=== PATIENT | female | born 1965 | race Two or more races ===

== ENCOUNTER 2017-11-13 13:00 | Outpatient (AMBR) | payer MEDICAID, SELFPAY ==
--- NOTE | 2017-11-06 14:39 | PT.ODAYNRPT ---
PT Outpatient Daily Note Date of Service: November 06, 2017 OP Daily Note Visit Reasons: knee pain Outpatient Physical Therapy Treatment Date: 11/06/17 Subjective: pt reported feeling more tired today and not sure. Objective: see flow sheet. Assessment: exercises seemed to be bothering pt more today due to increase in fatigue. pt needed more rest breaks in between reps and exercises. pt had more pain in the hips and was not able to complete all reps for tick-ticks. corrected pt's posture during mini squats as she brings her knees over her toes. she was then able to correct her posture after I demonstrated the correct form. Plan: continue POC per PT. Length of Time (minutes) of Treatment: 30 Minutes Office Procedures PT Procedures PT Date of Service: 11/06/17 Therapeutic Exercise 30 minutes: Yes
--- NOTE | 2017-11-11 14:09 | PT.ODAYNRPT ---
PT Outpatient Daily Note Date of Service: November 11, 2017 OP Daily Note Visit Reasons: knee pain Outpatient Physical Therapy Treatment Date: 11/11/17 Subjective: Pt's knee feels okay. Pt still has pain but she's been able to move and tolerate knee pain Objective: Please see flow chart for list of ther ex performed Assessment: tolerate exercises with minimal pain Plan: Continue with PT Length of Time (minutes) of Treatment: 30 Minutes Office Procedures PT Procedures PT Date of Service: 11/06/17 Therapeutic Exercise 30 minutes: Yes PT Procedures PT Date of Service: 11/11/17 Therapeutic Exercise 30 minutes: Yes
--- NOTE | 2017-11-13 13:54 | PT.ODAYNRPT ---
PT Outpatient Daily Note Date of Service: November 13, 2017 OP Daily Note Visit Reasons: knee pain Outpatient Physical Therapy Treatment Date: 11/13/17 Subjective: Pt's knee is feeling a little better. Pt stated that she still has difficulty with putting all weight on her knee with walking. Pt see the doctor on friday and will like to go back to work. Objective: Please see flow chart for list of ther ex performed Assessment: tolerate exercises with minimal pain Plan: Continue with PT Length of Time (minutes) of Treatment: 30 Minutes Office Procedures PT Procedures PT Date of Service: 11/06/17 Therapeutic Exercise 30 minutes: Yes PT Procedures PT Date of Service: 11/11/17 Therapeutic Exercise 30 minutes: Yes PT Procedures PT Date of Service: 11/13/17 Therapeutic Exercise 30 minutes: Yes
== END 2017-12-05 23:59 | disposition home or self-care (01) ==
PROVIDERS: Visit Provider Orthopaedic Surgery
DX: M23.91 Unspecified internal derangement of right knee (principal)
CPT/HCPCS: 97110

== ENCOUNTER 2024-02-10 13:06 | Outpatient (AMB) | payer MEDICARE, MEDICAID, SELFPAY ==
[2024-02-10 13:16] VITALS: BP 126/88; PULSE 81; RESP 19; TEMP 36.3; O2SAT 98; BMI 43.9
--- NOTE | 2024-02-10 13:16 | ORTHONT_ITS ---
Vital signs 02/10/24 13:16 Height 1.68 m Height Method Stated Weight 123.604 kg Weight Measurement Method Standing Scale BMI 43.9 BP 126/88 H Blood Pressure Source Automatic Cuff Blood Pressure Location Right Upper Arm Position Sitting Respiration 19 Pulse 81 Pulse Source Monitor Temp 97.3 F Temp Source Temporal Artery Scan Pulse Oximetry (%) 98 Oxygen Delivery Method Room Air Med/Allergies Allergies & Medications Allergies adhesive Allergy (Severe, Verified 02/10/24 13:17) Blister Medication Reconciliation zolpidem 10 mg tablet 10 mg PO HS PRN Insomnia 06/05/17 [History Confirmed 02/10/24] aspirin 81 mg tablet,delayed release (Aspir-) 81 mg PO QDAY 02/10/19 [History Confirmed 02/10/24] hydrocodone 5 mg-acetaminophen 325 mg tablet ([place]) 1 tab PO Q6H PRN Pain 02/10/19 [History Confirmed 02/10/24] naproxen 375 mg tablet,delayed release 375 mg PO BID 02/10/19 [History Confirmed 02/10/24] rivaroxaban 15 mg tablet (Xarelto) 15 mg PO BID #60 tabs 02/10/19 [Rx Confirmed 02/10/24] lidocaine 4 % topical cream 1 applicatio topical BID PRN pain #30 grams 07/15/19 [Rx Confirmed 02/10/24] Subjective Visit Visit for: new patient and other (specify) (second opinion) Immunization / Flu Flu Vaccine in the Last 12 Months: No Flu Vaccine Exclusion Criteria: Refused by Patient History of Present Illness Chief complaint: Right knee pain Patient is a 58-year-old female with a total knee replacement in 2018 that was complicated by stiffness who subsequently fell. She was found to have a distal femur fracture which underwent plating. This subsequently got infected and the patient required revision surgery of some sort in 2019 at [facility]. The knee has been stiff since then and she was told that she cannot get any redo surgery. Her knee is persistently stiff and painful Personal History Occupation: retired Pain Pain level (0-10): 8 Pain duration: with activity Pain location: inside (medial), outside (lateral) and anterior Pain quality: sharp Pain timing: increases with activity Associated signs & symptoms: none Ambulatory data Ambulatory device: none Treatments Improvement with previous injections: No Improvement with PT: No Improvement with NSAIDS: no Review of Systems Review of Systems: All systems negative unless otherwise noted in HPI. Exam Exam Patient is in no acute distress and is cooperative with the examination today. Patient has a normal mood and affect. Breathing is nonlabored. In no respiratory distress. Bilateral extremities were evaluated and demonstrates sensation intact to light touch. Palpable pedal pulses are present. No significant edema is present. Right knee incision is clean dry and intact. Range of motion is 0 to 10 degrees. It is tender to palpation medially and laterally Assessment and Plan Problem List (1) Infection of knee: Status: Acute Plan: Patient is a 58-year-old Female status post right total knee replacement comp licated by fracture and infection who underwent revision surgery. I do not know what the current images look like at all. I will order x-rays to see what it looks like currently. Her knee is complicated by stiffness and we will likely get an infection workup but I cannot see any images So I am unsure of what to do so we will make her get new x-rays. (2) Knee swelling: Status: Acute (3) Closed femur fracture: Status: Acute Office Procedures GNS Level of Care Nursing/Assessment Patient Status: Initial/New Patient Nursing Assessment/Reassesment: Medication Reconciliation, Update PMH in EMR and Vital Signs Coordination of Care: Complex Care and Chronic Disease 1-5, Education Complex Pt/Fam, Consent,records obtained, informed consent, 1 Ins Authorization, Lab and Imaging orders, Results/Orders obtained and Staff clarify orders Special Needs: Language special needs New Patient Charge New Patient Point Assignment: 1124 New Patient Point Charge: SENIOR ANALYSIS SPECIALIST Level 4 ([id number]) Past Medical History Past Medical History Have you ever been diagnosed with any of the following: Neurological Problems Seizures: No Migraine: Yes Cardiology Problems Congestive Heart Failure: No Varicose Veins: Yes Respiratory Problems Chronic Obstructive Pulmonary Disease (COPD): No Asthma: Yes Bronchitis: Yes Smoking: No Smoking Exposure: No Stomache/Intestinal Problems Obesity: Yes Genital/Urinary Problems Renal Disease: No Reproductive Problems Breast Cancer: No Previous Pregnancies: Yes Musculoskeletal Problems Arthritis: Yes (knees, spine) Carpal Tunnel Syndrome: Yes Degenerative Joint Disease: Yes (History of right knee DJD, history of surgeries x2 to the right knee) Endocrine Problems Diabetes Mellitus Type 1: No Diabetes Mellitus Type 2: No Blood Problems Anemia: No Other Problems Hospitalization: No Falls: No Blood Transfusions: No Blood Transfusion Reaction: No Anesthesia Reactions: No Chicken Pox: Yes
== END 2024-02-10 13:31 | disposition home or self-care (01) ==
LOC: HODSRG 13:06
PROVIDERS: PCP Registered Nurse Community Health; Referring Provider Registered Nurse Community Health; Supervising Provider Orthopaedic Surgery Adult Reconstructive Orthopaedic Surgery; Visit Provider Orthopaedic Surgery Adult Reconstructive Orthopaedic Surgery
DX: M25.669 Stiffness of unspecified knee, not elsewhere classified (principal); S72.90XD Unspecified fracture of unspecified femur, subsequent encounter for closed fracture with routine healing; X58.XXXD Exposure to other specified factors, subsequent encounter; Z96.651 Presence of right artificial knee joint
CPT/HCPCS: 73564; 99204; G0463

== ENCOUNTER → 2024-04-01 | Outpatient (CLI) | payer MEDICARE, MEDICAID, SELFPAY ==
--- NOTE | 2024-04-01 15:32 | XR_ITS ---
Examination: Bilateral hips, AP pelvis, 5 views, right femur 2 views Technique: AP, lateral views both hips, AP pelvis, 5 views, AP lateral right femur 2 views total 7 views Exam date and time: April 01, 2024 1534 hours INDICATIONS: Bilateral hip pain for years worse right hip FINDINGS: Mild to moderate narrowing right and left hip joints No right or left hip fracture Total right knee arthroplasty partly visualized with satisfactory alignment No right femur fracture IMPRESSION: Mild to moderate narrowing right and left hip joints
--- NOTE | 2024-04-01 15:32 | XR_ITS ---
Examination: Lumbar spine, 5 views Technique: Lumbar spine AP, lateral, coned lateral lower lumbar spine, bilateral obliques 5 views Exam date and time: April 01, 2024 1534 hours INDICATIONS: Low back pain beginning 2 years ago getting worse. FINDINGS: Diffuse advanced facet arthropathy No lumbar fracture Moderate to advanced diffuse lumbar degenerative disc disease No spondylolisthesis. Moderate lumbar spondylosis IMPRESSION: Moderate to advanced diffuse lumbar degenerative disc disease
[2024-04-01 17:04] LABS: Albumin, Serum 4.5 gm/dL (3.5-5.0); Anion Gap 6 (7-16); BUN/Creatinine Ratio 33 Ratio (12-20); Blood Urea Nitrogen 26 mg/dL (9-23); Calcium 9.3 mg/dL (8.3-10.6); Calcium (Corrected) 9.3 mg/dL (8.5-10.1); Carbon Dioxide 25.9 mMol/L (20.0-31.0); Chloride 107 mMol/L (98-107); Creatinine (Component) 0.8 mg/dL (0.6-1.3); Glucose 101 mg/dL (74-106); Osmolality,Calculated 282 (275-295); Potassium 4.2 mMol/L (3.4-5.1); Sodium 139 mMol/L (136-145); eGFR > 60 See Note
== END | disposition home or self-care (01) ==
PROVIDERS: PCP Registered Nurse Community Health; Referring Provider Registered Nurse Community Health; Visit Provider Radiology Diagnostic Radiology
DX: M51.369 Other intervertebral disc degeneration, lumbar region without mention of lumbar back pain or lower extremity pain (principal); M25.852 Other specified joint disorders, left hip; M25.851 Other specified joint disorders, right hip; R05.9 Cough, unspecified
CPT/HCPCS: 36415; 72110; 73522; 80069

== ENCOUNTER → 2024-04-13 | Outpatient (CLI) | payer MEDICARE, MEDICAID, SELFPAY ==
--- NOTE | 2024-04-13 | XR_ITS ---
Examination: PA lateral chest 2 views TECHNIQUE: Upright PA lateral chest 2 views Exam date and time: April 13, 2024 1252 hours INDICATIONS: Chronic coughing months, chest pain one week FINDINGS: Normal heart size Scarring versus mild pneumonia in the lingular segment left upper lobe, clinical correlation advised No pulmonary edema Moderate osteopenia IMPRESSION: Scarring versus mild pneumonia in the lingular segment left upper lobe, clinical correlation advised
[2024-04-19 06:57] LABS: ANA Screen, IFA NEGATIVE (NEGATIVE)
== END | disposition home or self-care (01) ==
PROVIDERS: Internal Medicine; PCP Specialist; Referring Provider Registered Nurse Community Health; Visit Provider Radiology Diagnostic Radiology
DX: R13.10 Dysphagia, unspecified (principal); J42 Unspecified chronic bronchitis; J45.30 Mild persistent asthma, uncomplicated; R05.3 Chronic cough; R07.1 Chest pain on breathing; G47.9 Sleep disorder, unspecified
CPT/HCPCS: 36415; 71046; 84443; 86038

== ENCOUNTER → 2024-04-15 | Outpatient (CLI) | payer MEDICARE, MEDICAID, SELFPAY ==
--- NOTE | 2024-04-15 11:30 | XR_ITS ---
Examination: Abdomen sonogram, Limited Date and time of exam: April 15, 2024 1144 hours INDICATIONS: Abdominal pain with heartburn and constipation beginning 2 years ago. Technique: Real-time ruby scale transabdominal sonographic images of the upper abdomen obtained. Findings: Normal gallbladder Normal common bile duct 0.2 cm Pancreatic head 2.8 cm Hepatomegaly 18.1 cm fatty infiltration no focal liver lesions Normal hepatopedal portal venous flow Patent IVC IMPRESSION: Normal gallbladder Moderate hepatomegaly fatty liver
== END | disposition home or self-care (01) ==
PROVIDERS: PCP Registered Nurse Community Health; Referring Provider Specialist; Visit Provider Specialist
DX: K76.0 Fatty (change of) liver, not elsewhere classified (principal)
CPT/HCPCS: 76705

== ENCOUNTER 2024-04-16 15:30 | Outpatient (AMB) | payer MEDICARE, MEDICAID, SELFPAY ==
[2024-04-16 15:47] VITALS: BP 141/88; PULSE 70; RESP 18; TEMP 36.2; O2SAT 96; BMI 43.2
--- NOTE | 2024-04-16 15:47 | PD.ORTHCLVIS ---
Vital signs 04/16/24 15:47 Height 1.68 m Height Method Stated Weight 122.016 kg Weight Measurement Method Standing Scale BMI 43.2 BP 141/88 H Blood Pressure Source Automatic Cuff Blood Pressure Location Left Upper Arm Position Sitting Respiration 18 Pulse 70 Pulse Source Monitor Temp 97.2 F Temp Source Temporal Artery Scan Pulse Oximetry (%) 96 Oxygen Delivery Method Room Air Med/Allergies Allergies & Medications Allergies adhesive Allergy (Severe, Verified 04/16/24 15:48) Blister Medication Reconciliation zolpidem 10 mg tablet 10 mg PO HS PRN Insomnia 06/05/17 [History Confirmed 04/16/24] aspirin 81 mg tablet,delayed release (Aspir-) 81 mg PO QDAY 02/10/19 [History Confirmed 04/16/24] hydrocodone 5 mg-acetaminophen 325 mg tablet ([place]) 1 tab PO Q6H PRN Pain 02/10/19 [History Confirmed 04/16/24] naproxen 375 mg tablet,delayed release 375 mg PO BID 02/10/19 [History Confirmed 04/16/24] rivaroxaban 15 mg tablet (Xarelto) 15 mg PO BID #60 tabs 02/10/19 [Rx Confirmed 04/16/24] lidocaine 4 % topical cream 1 applicatio topical BID PRN pain #30 grams 07/15/19 [Rx Confirmed 04/16/24] Exam Exam Patient is in no acute distress and is cooperative with the examination today. Patient has a normal mood and affect. Breathing is nonlabored. In no respiratory distress. Bilateral extremities were evaluated and demonstrates sensation intact to light touch. Palpable pedal pulses are present. No significant edema is present. Right knee incision is clean dry and intact. Range of motion is 0 to 10 degrees. It is tender to palpation medially and laterally Xrays demonstrate a revision total knee replacement with well fixed cemented femoral stems and cementless tibia stems. Assessment and Plan Problem List (1) Infection of knee: Status: Acute Plan: Patient is a 58-year-old Female status post right total knee replacement complicated by fracture and infection who underwent revision surgery. Her knee is complicated by stiffnes. We can get an esr and crp and go from there. We will do an aspiration if it is high. (2) Knee swelling: Status: Acute (3) Closed femur fracture: Status: Acute Office Procedures GNS Level of Care Nursing/Assessment Patient Status: Established Patient Nursing Assessment/Reassesment: Medication Reconciliation, Update PMH in EMR and Vital Signs Coordination of Care: Complex Care and Chronic Disease 1-5, Education Complex Pt/Fam, Consent,records obtained, informed consent, Results/Orders obtained and Staff clarify orders Special Needs: Language special needs Established Patient Charge Established Patient Point Assignment: 95 Established Patient Point Charge: EP Level 3 (80-115) MA Intake Visit Data Collection New Patient or Established: Established Patient (seen at [facility] within 3 years) Reason for Visit:: XRAY RESULTS Seen by Clinical Staff ONLY (RN/MA): No Laborer Demolition Required: Yes PCP or OBGYN visit in last 3 months: Yes Hx Now: No Do You Feel Safe at Home: Yes Authorities Contacted: N/A Questionairres Past Medical History Past Medical History Have you ever been diagnosed with any of the following: Neurological Problems Seizures: No Migraine: Yes Cardiology Problems Congestive Heart Failure: No Varicose Veins: Yes Respiratory Problems Chronic Obstructive Pulmonary Disease (COPD): No Asthma: Yes Bronchitis: Yes Smoking: No Smoking Exposure: No Stomache/Intestinal Problems Obesity: Yes Genital/Urinary Problems Renal Disease: No Reproductive Problems Breast Cancer: No Previous Pregnancies: Yes Musculoskeletal Problems Arthritis: Yes (knees, spine) Carpal Tunnel Syndrome: Yes Degenerative Joint Disease: Yes (History of right knee DJD, history of surgeries x2 to the right knee) Endocrine Problems Diabetes Mellitus Type 1: No Diabetes Mellitus Type 2: No Blood Problems Anemia: No Other Problems Hospitalization: No Falls: No Blood Transfusions: No Blood Transfusion Reaction: No Anesthesia Reactions: No Chicken Pox: Yes Subjective Visit Visit for: follow up visit and x-rays (RESULTS) Immunization / Flu Flu Vaccine in the Last 12 Months: No Flu Vaccine Exclusion Criteria: No Exclusion Criteria History of Present Illness Chief complaint: right knee pain Patient is a 58-year-old female with a total knee replacement in 2018 that was complicated by stiffness who subsequently fell. She was found to have a distal femur fracture which underwent plating. This subsequently got infected and the patient required revision surgery of some sort in 2019 at [facility]. The knee has been stiff since then and she was told that she cannot get any redo surgery. Her knee is persistently stiff and painful. Pain Pain level (0-10): 10 Pain duration: CONSTANT Pain location: inside (medial) and outside (lateral) Pain quality: sharp, dull, aching and burning Pain timing: night, increases with activity and stairs Associated signs & symptoms: weakness Ambulatory data Ambulatory device: none Treatments Improvement with previous injections: No Improvement with PT: No Improvement with NSAIDS: no Review of Systems Review of Systems: All systems negative unless otherwise noted in HPI.
== END 2024-04-16 16:02 | disposition home or self-care (01) ==
PROVIDERS: Supervising Provider Orthopaedic Surgery Adult Reconstructive Orthopaedic Surgery; Visit Provider Orthopaedic Surgery Adult Reconstructive Orthopaedic Surgery
DX: S72.90XD Unspecified fracture of unspecified femur, subsequent encounter for closed fracture with routine healing (principal); X58.XXXD Exposure to other specified factors, subsequent encounter; M25.469 Effusion, unspecified knee; M25.669 Stiffness of unspecified knee, not elsewhere classified
CPT/HCPCS: 99213; G0463

== ENCOUNTER → 2024-04-16 | Outpatient (CLI) | payer MEDICARE, MEDICAID, SELFPAY ==
[2024-04-16 17:46] LABS: Sed Rate (ESR) 19 mm/hr (0-30)
[2024-04-27 06:35] LABS: hs-CRP* 5.2 mg/L
== END | disposition home or self-care (01) ==
LOC: COPL 16:16
PROVIDERS: PCP Registered Nurse Community Health; Referring Provider Orthopaedic Surgery Adult Reconstructive Orthopaedic Surgery; Visit Provider Orthopaedic Surgery Adult Reconstructive Orthopaedic Surgery
DX: S72.90XA Unspecified fracture of unspecified femur, initial encounter for closed fracture (principal); M00.9 Pyogenic arthritis, unspecified
CPT/HCPCS: 36415; 85652; 86141

== ENCOUNTER 2024-04-19 10:05 | Day surgery (SDC) | payer MEDICARE, MEDICAID, SELFPAY ==
--- NOTE | 2024-04-16 06:00 | EKG_ITS ---
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
[2024-04-16 17:44] LABS: Prothrombin Time 10.7 Seconds (9.0-12.2)
[2024-04-16 17:48] LABS: Alanine Aminotransferase 18 U/L (10-49); Albumin, Serum 4.6 gm/dL (3.5-5.0); Albumin/Globulin Ratio 1.6 (1.2-2.2); Alkaline Phosphatase 92 U/L (46-116); Anion Gap 4 (7-16); Aspartate Amino Transferase < 10 U/L (0-34); BUN/Creatinine Ratio 37 Ratio (12-20); Bilirubin,Total 0.3 mg/dL (0.3-1.2); Blood Urea Nitrogen 26 mg/dL (9-23); Calcium 9.6 mg/dL (8.3-10.6); Calcium (Corrected) 9.6 mg/dL (8.5-10.1); Carbon Dioxide 28.8 mMol/L (20.0-31.0); Chloride 106 mMol/L (98-107); Creatinine (Component) 0.7 mg/dL (0.6-1.3); Globulin 2.8 gm/dL (2.3-3.5); Glucose 88 mg/dL (74-106); Osmolality,Calculated 281 (275-295); Potassium 4.3 mMol/L (3.4-5.1); Sodium 139 mMol/L (136-145); Total Protein 7.4 gm/dL (5.7-8.2); eGFR > 60 See Note
[2024-04-19 11:41] VITALS: BP 127/68; PULSE 66; RESP 16; TEMP 36.7; O2SAT 97; BMI 42.9
[2024-04-19] MEDS: SODIUM CHLORIDE 0.9% 500 ML 500 ML 20 ML IV (12:15)
[2024-04-19 12:59] VITALS: BP 145/95; PULSE 75; RESP 17; TEMP 36.7; O2SAT 98
--- NOTE | 2024-04-19 16:01 | SUR.PHASEII ---
1259: Pt received in [facility] via gurney. Report from Anna LOBATO student. Pt obtunded. Oral airway in place. Resp even, unlabored. VS stable. 1313: Pt beginning to awaken. Oral airway dc'd. Resp even, unlabored. 1330: Pt more awake. VS stable. Sitting up tolerating po fluids with no difficulty swallowing and no n/v. 1342: Pt fully awake, oriented x3. Pt assisted to restroom. Is passing large amounts of flatus. 1405: Pt dressed and in transport chair. Pt and stated understanding of discharge instructions. Pt discharged from [facility] in stable condition.
== END 2024-04-19 14:05 | disposition home or self-care (01) ==
PROVIDERS: Anesthesiology; PCP Registered Nurse Community Health; Referring Provider Specialist; Visit Provider Specialist
PROC: 0DBE8ZX Excision of Large Intestine, Via Natural or Artificial Opening Endoscopic, Diagnostic (ICD-10-PCS; CPT 45380; principal; 2024-04-19 10:15)
PROC: (CPT 43239; 2024-04-19 10:15)
DX: D12.4 Benign neoplasm of descending colon (principal); K64.9 Unspecified hemorrhoids; K21.01 Gastro-esophageal reflux disease with esophagitis, with bleeding; K29.71 Gastritis, unspecified, with bleeding; K22.2 Esophageal obstruction; K29.51 Unspecified chronic gastritis with bleeding; K62.1 Rectal polyp; B96.81 Helicobacter pylori [H. pylori] as the cause of diseases classified elsewhere; K31.89 Other diseases of stomach and duodenum
CPT/HCPCS: 45380; 45385; 43248; 43239; 36415; 80053; 85610; 85730; 93005; A4649; C1769; J7040

== ENCOUNTER → 2024-06-11 | Outpatient (CLI) | payer MEDICARE, MEDICAID, SELFPAY ==
--- NOTE | 2024-06-11 09:33 | EKG_ITS ---
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
[2024-06-11 10:31] LABS: Glucose,Fasting 86 mg/dL (74-106)
== END | disposition home or self-care (01) ==
LOC: COPL 09:03
PROVIDERS: PCP Registered Nurse Community Health; Referring Provider Student in an Organized Health Care Education/Training Program; Visit Provider Student in an Organized Health Care Education/Training Program
DX: Z01.818 Encounter for other preprocedural examination (principal); H25.811 Combined forms of age-related cataract, right eye
CPT/HCPCS: 36415; 82947; 93005

== ENCOUNTER 2025-02-02 18:41 | Inpatient (IN) | payer MEDICARE, MEDICAID, SELFPAY ==
[2025-02-02 18:42] VITALS: BMI 40.3
[2025-02-02 19:06] VITALS: BP 149/90; PULSE 80; RESP 20; TEMP 36.6; O2SAT 95
--- NOTE | 2025-02-02 19:39 | XR_ITS ---
Examination: CT abdomen and pelvis without contrast. Coronal 3-D reconstructions. Sagittal 2-D reconstructions. Date and time of exam: February 02, 20252008 hours INDICATIONS: Lower abdominal pain pelvic pain beginning today CTDI: vol (mGy): 16 DLP: (mGycm): 922 Technique: Axial images of the abdomen have been obtained, 3 mm slice thickness Intravenous contrast material has not been administered. Low dose protocols were performed. One or more of the following dose reduction techniques were used; automated exposure control, adjustment of the mA and/or KV according to patient size, use of iterative reconstruction technique. Findings: No focal liver or splenic lesions No gallstones No pancreatic or adrenal mass No renal or ureteral calculi, no hydronephrosis Aorta normal size 21 mm supraumbilical hernia defect containing incarcerated fat 5.4 cm umbilical hernia defect containing incarcerated small bowel with dilated small bowel loops No pelvic mass Contracted urinary bladder Moderate osteopenia IMPRESSION: 5.4 cm umbilical hernia defect containing incarcerated small bowel with dilated small bowel loops, early small bowel obstruction Consider Gastrografin enema Recommend surgical consultation
[2025-02-02 20:20] LABS: Basophils # (Auto) 0.0 Thou/mm3 (0.0-0.2); Basophils % (Auto) 0 % (0-2.5); Eosinophils # (Auto) 0.1 Thou/mm3 (0.0-0.5); Eosinophils % (Auto) 1 % (0-10); Hematocrit 43.3 % (36.0-46.0); Hemoglobin 14.4 g/dL (12.0-16.0); Immature Granulocytes Auto 0.06 Thou/mm3 (0.00-0.00); Lymphocytes # (Auto) 2.6 Thou/mm3 (1.0-4.8); Lymphocytes % (Auto) 25 % (10-50); Mean Corpuscular HGB Conc 33.3 g/dl (31.0-37.0); Mean Corpuscular Hemoglobin 30.2 pg (25.0-35.0); Mean Corpuscular Volume 91 fL (80-100); Monocytes # (Auto) 0.4 Thou/mm3 (0.0-0.8); Monocytes % (Auto) 4 % (0-12); Neutrophils # (Auto) 7.3 Thou/mm3 (1.8-7.7); Neutrophils % (Auto) 70 % (37-80); Nucleated Red Blood Cell # 0.00 Thou/mm3 (0.00-0.00); Nucleated Red Blood Cell % 0 /100 WBC (0); Platelet Count 278 Thou/mm3 (140-440); RDW Standard Deviation 47.7 fL (36.4-46.3); Red Blood Count 4.77 Miln/mm3 (4.00-5.20); White Blood Count 10.5 Thou/mm3 (3.6-11.0)
[2025-02-02 20:20] LABS: Collection Type, Urine Voided
[2025-02-02 20:35] LABS: Bilirubin,Urine Negative (Negative); Blood,Urine Negative (Negative); Clarity,Urine Clear (Clear/Hazy); Color,Urine Yellow (Lt Yel-Yel); Culture Indicated,Urine Not Indicated; Glucose, Urine Negative (Negative); Ketones,Urine Negative (Negative); Leukocyte Esterase,Urine Negative (Negative); Nitrite,Urine Negative (Negative); PH,Urine 6.5 (5.0-7.0); Protein,Urine Trace (Neg - Trace); RBC,Urine 2 /hpf (0-3); Specific Gravity,Urine 1.028 (1.001-1.035); Squamous Epithelial Cell,Urine 4 /hpf (0-5); Urobilinogen,Urine Negative mg/dL (0.0-1.0); WBC,Urine 2 /hpf (0-5)
[2025-02-02 20:36] LABS: Alanine Aminotransferase 22 U/L (10-49); Albumin, Serum 5.4 gm/dL (3.5-5.0); Albumin/Globulin Ratio 1.6 (1.2-2.2); Alkaline Phosphatase 94 U/L (46-116); Anion Gap 10 (7-16); Aspartate Amino Transferase 22 U/L (0-34); BUN/Creatinine Ratio 22 Ratio (12-20); Bilirubin,Total 0.4 mg/dL (0.3-1.2); Blood Urea Nitrogen 20 mg/dL (9-23); Calcium 10.4 mg/dL (8.3-10.6); Calcium (Corrected) 10.4 mg/dL (8.5-10.1); Carbon Dioxide 27.2 mMol/L (20.0-31.0); Chloride 106 mMol/L (98-107); Creatinine (Component) 0.9 mg/dL (0.6-1.3); Estimated Creatinine Clearance 88.1 mL/min (>60); Globulin 3.4 gm/dL (2.3-3.5); Glucose 108 mg/dL (74-106); Lipase 34 U/L (12-53); Osmolality,Calculated 288 (275-295); Potassium 3.5 mMol/L (3.4-5.1); Sodium 143 mMol/L (136-145); Total Protein 8.8 gm/dL (5.7-8.2); eGFR > 60 See Note
[2025-02-02] MEDS: ONDANSETRON ODT 4 MG TABRAP PO (21:53)
[2025-02-02] MEDS: MORPHINE SULF INJ 4 MG/ML VIAL IM (21:53)
[2025-02-02 22:48] VITALS: BP 148/83; PULSE 72; RESP 20; TEMP 36.4; O2SAT 94
[2025-02-02] MEDS: ONDANSETRON INJ 2 MG/ML INJ 2 ML 4 MG IVP (23:24)
[2025-02-02] MEDS: HYDROmorphone INJ 2 MG/ML VIAL 1 MG IVP (23:24)
[2025-02-02 23:45] VITALS: BP 143/92; PULSE 71; RESP 19; TEMP 36.5; O2SAT 100
--- NOTE | 2025-02-02 23:51 | PD.EDABDPN ---
ED Abdominal Pain RME/HPI General Chief Complaint: Abdominal Pain Stated complaint: LOWER ABD PAIN X6 HRS WITH NAUSEA Time seen by provider: 02/02/25 19:04 Arrival date/time: 02/02/25 18:41 RME / HPI RME / HPI narrative: 59 year-old female patient with no significant previous health history presents emergency department with sudden onset of left lower abdominal pain radiating to right that started this morning. Patient reports nausea without vomiting. Patient rates her pain currently as a 10 out of 10. Patient denies previous abdominal surgery but states that she had tubal ligation. Patient states pain is worse also with palpation of her umbilicus she does report a previous history of umbilical hernia. She states she was told by her PCP her umbilical hernia pain worsen she should go to the ED for further care. She denies any recent heavy lifting. She denies pain with urination. She denies constipation. Related Data Home Medications ?Medication ?Instructions ?Recorded ?Confirmed zolpidem 10 mg tablet 10 mg PO HS PRN Insomnia 06/05/17 04/19/24 Held on 04/19/24. Instructions: Resume on 04/20/24. hydrocodone 5 mg-acetaminophen 325 1 tab PO Q6H PRN Pain 02/10/19 04/19/24 mg tablet ([place]) Held on 04/19/24. Instructions: Resume on 04/20/24. buspirone 7.5 mg tablet 7.5 mg PO BID 04/19/24 04/19/24 celecoxib 200 mg capsule 200 mg PO QDAY 04/19/24 04/19/24 cetirizine 10 mg tablet 10 mg PO QDAY 04/19/24 04/19/24 famotidine 40 mg tablet 40 mg PO HS 04/19/24 04/19/24 fluticasone fur. 200 mcg-umeclid 1 inh inhalation QDAY 04/19/24 04/19/24 62.5 mcg-vilant 25 mcg inhalat.powder (Trelegy Ellipta) Allergies Allergy/AdvReac Type Severity Reaction Status Date / Time No Known Allergies Allergy Verified 02/02/25 18:44 Review of Systems Review of Systems Systems Reviewed: All systems reviewed, normal except as documented Constitutional Constitutional: Reports system reviewed and no additional complaints, except as documented ENT Ears, Nose, Mouth, and Throat: Denies dysphagia and Denies odynophagia Cardiovascular Cardiovascular: Reports system reviewed and no additional complaints, except as documented Gastrointestinal Gastrointestinal: Reports system reviewed and no additional complaints, except as documented, Reports abdominal pain, Denies belching, Denies change in bowel habits, Denies change in stool character, Denies coffee ground emesis, Denies dysphagia, Denies early satiety, Denies excessive flatus, Denies hematemesis, Denies hematochezia and Denies odynophagia Neurologic Neurologic: Reports system reviewed and no additional complaints, except as documented Psychiatric Psychiatric: Reports system reviewed and no additional complaints, except as documented ED Exam General General appearance: Present alert Head Head exam: Present atraumatic and normocephalic ENT ENT exam: Present normal exam and normal oropharynx Cardiovascular Cardiovascular exam: Present regular rate and normal rhythm Abdominal Exam Abdominal exam: Present soft, tenderness and hernia; Absent trauma, obturator sign, heel tap sign, Eckert's sign, Rovsing's sign, tenderness at McBurney's Point or mass Abdominal tenderness: Present epigastrium, suprapubic, diffuse and moderate Neurological Exam Neurological exam: Present alert and oriented X3 Course Quality Measures none Orders Category Date Time Status COVID-19 Screening Questionnaire NOW Care 02/02/25 23:[address] abdomen pelvis wo con Stat Exams 02/02/25 19:39 Completed CBC [CBC] Stat Lab 02/02/25 19:50 Completed CMP [Comprehensive Metabolic Panel] Stat Lab 02/02/25 19:50 Completed Lipase Stat Lab 02/02/25 19:50 Completed Urinalysis, C/S if Indicated Stat Lab 02/02/25 20:00 Completed HYDROmorphone INJ [Dilaudid Inj] Med 02/02/25 22:48 Discontinued 1 mg IVP X1 ONE Morphine* Inj Med 02/02/25 20:04 Discontinued 4 mg IM X1 ONE Morphine* Inj Med 02/02/25 19:41 Discontinued 4 mg IVP NOW ONE Ondansetron Inj [Zofran Inj] Med 02/02/25 22:49 Discontinued 4 mg IVP X1 ONE Ondansetron Odt [Zofran Odt] Med 02/02/25 19:42 Discontinued 4 mg PO X1 ONE Vital Signs Vital signs: Vital Signs Temperature 97.8 F 02/02/25 19:06 Pulse Rate 80 02/02/25 19:06 Respiratory Rate 20 02/02/25 19:06 Blood Pressure 149/90 H 02/02/25 19:06 Pulse Oximetry (%) 95 02/02/25 19:06 Oxygen Delivery Method Room Air 02/02/25 19:06 Abdominal Pain [facility] Narrative [facility] Narrative:: 72-year-old female patient presents emergency department with complaint of sudden onset of lower abdominal pain. Imaging studies indicate patient had 5.4 cm umbilical hernia defect containing incarcerated small bowel with dilated small bowel loops, early small bowel obstruction. Surgical consult was made with surgeon recommending we tried reducing umbilical hernia. Patient was given morphine and Dilaudid for pain control and manual reduction of the umbilical hernia was attempted without success. Surgeon was informed of not being able to reduce umbilical hernia and surgeon states she will be coming to evaluate patient. Patient data External records reviewed:: None Clinical information provided by:: patient Social determinants that could affect healthcare access:: none Patient has the following chronic illnesses:: na How is presenting disease/condition affected by chronic disease/condition?: no chronic disease Evaluation data The following diagnostics were reviewed and interpreted by me:: lab results and radiology exam(s) Lab and/or radiology exams considered but not ordered:: both considered and ordered Interpretation Summary: see MDM Medications / Prescriptions Medications or Prescriptions considered but not ordered:: meds considered and ordered Medication administrations:: Medication Administration History Discontinued Medications Hydromorphone HCl (Hydromorphone Inj 2 Mg/Ml Vial) 1 mg IVP X1 ONE Stop: 02/02/25 22:49 Last Admin: 02/02/25 23:24 Dose: 1 mg Documented By: ANDREI Morphine Sulfate (Morphine Sulf Inj 4 Mg/Ml Vial) 4 mg IVP NOW ONE Stop: 02/02/25 19:42 Last Admin: 02/02/25 21:14 Dose: Not Given Documented By: ASUNCION Non-Admin Reason: Discontinued Morphine Sulfate (Morphine Sulf Inj 4 Mg/Ml Vial) 4 mg IM X1 ONE Stop: 02/02/25 20:05 Last Admin: 02/02/25 21:53 Dose: 4 mg Documented By: ASUNCION Ondansetron HCl (Ondansetron Odt 4 Mg Tabrap) 4 mg PO X1 ONE; Protocol Stop: 02/02/25 19:43 Last Admin: 02/02/25 21:53 Dose: 4 mg Documented By: ASUNCION Ondansetron HCl (Ondansetron Inj 2 Mg/Ml Inj 2 Ml) 4 mg IVP X1 ONE; Protocol Stop: 02/02/25 22:50 Last Admin: 02/02/25 23:24 Dose: 4 mg Documented By: ANDREI per above Consultations Consultation(s) initiated? (list below): Yes Consultation #1 (Physician, Specialty, Details): [place], Surgery Diagnosis Differential diagnosis abdominal pain: abdominal pain, acute appendicitis, calculus of kidney, constipation, diverticulitis, gastroenteritis and small bowel obstruction Most likely diagnosis given after review of the tests above:: small bowel obstruction Admission Indicated Admission indicated?: indicated Admission Request Was there a request for admission?: Yes Admission Attestation Admission request attestation: Discussed case with [] from Hospitalist service regarding admission. Discussed patients ED course, exam findings, labs, and radiology results. The Hospitalist [agrees,declines] to accept the patient for admission. Disposition Plan Disposition Plan: Admit Discharge Plan Plan Patient Disposition: Admit Acute Care w/in Hospital Patient condition on transfer: Stable Prescriptions/Referrals Prescriptions/Med Rec: No Action hydrocodone-acetaminophen [[place]] 5-325 mg Tablet 1 tab PO Q6H PRN (Reason: Pain) zolpidem 10 mg Tablet 10 mg PO HS PRN (Reason: Insomnia) famotidine 40 mg tablet 40 mg PO HS Patient Comments: TOME IRIS TABLETA AL ACOSTARSE Trelegy Ellipta 200-62.5-25 mcg blister with device 1 inh INHALATION QDAY Patient Comments: INHALE 1 PUFF POR V A ORAL ONCE A DAY celecoxib 200 mg Capsule 200 mg PO QDAY cetirizine 10 mg Tablet 10 mg PO QDAY buspirone 7.5 mg Tablet 7.5 mg PO BID Referrals: Keisha Priest FNP [Primary Care Provider] - In 1 week Problem List Clinical Impression: SBO (small bowel obstruction), Incarcerated umbilical hernia Patient/Caregiver Discharge Instructions Education Materials: Small Bowel Obstruction, ED Hernia (Adult) Print Language: Chinese Stand Alone Forms: Sherry Award Info., Patient Portal Info Letter
[2025-02-03] VITALS (13 sets, daily range): BP systolic 115–164; BP diastolic 69–98; PULSE 65–113; RESP 10–96; TEMP 36.1–36.8; O2SAT 96–100; BMI 41.8
[2025-02-03] MEDS: HYDROmorphone INJ 2 MG/ML VIAL 1 MG IVP (00:31)
--- NOTE | 2025-02-03 00:34 | PC.NURSE ---
DR. LEWIS AT BEDSIDE GETTING CONSENT FOR SURGERY FOR UMBILICAL HERNIA REPAIR.
--- NOTE | 2025-02-03 00:55 | PD.SURCONS ---
HPI Consult details History of present illness: 59F with asthma, chronic pain on [place], history of right femur fracture presenting to ER with abdominal pain, nausea and vomiting. Patient reports since 11 AM yesterday she felt like her hernia was stuck, was very painful associated with multiple episodes of nausea and vomiting. Her last oral intake was around the same time. Workup was consistent with incarcerated umbilical hernia that was not reducible after attempts with pain medication PMH: Asthma, chronic pain including migraines, DVT PSH: Tubal ligation, repair of femur, varicose veins Meds: Includes ASA 81 mg, no other antiplatelet or anticoagulation Allergies: NKDA Review of Systems Review of Systems ROS Unobtainable: All systems reviewed & no additional complaints except as documented Neurologic Neurologic: Reports system reviewed and no additional complaints, except as documented Meds Home Medications and Allergies Home Medications ?Medication ?Instructions ?Recorded ?Confirmed ?Type zolpidem 10 mg tablet 10 mg PO HS PRN Insomnia 06/05/17 04/19/24 History Held on 04/19/24. Instructions: Resume on 04/20/24. hydrocodone 5 mg-acetaminophen 325 1 tab PO Q6H PRN Pain 02/10/19 04/19/24 History mg tablet ([place]) Held on 04/19/24. Instructions: Resume on 04/20/24. buspirone 7.5 mg tablet 7.5 mg PO BID 04/19/24 04/19/24 History celecoxib 200 mg capsule 200 mg PO QDAY 04/19/24 04/19/24 History cetirizine 10 mg tablet 10 mg PO QDAY 04/19/24 04/19/24 History famotidine 40 mg tablet 40 mg PO HS 04/19/24 04/19/24 History fluticasone fur. 200 mcg-umeclid 1 inh inhalation QDAY 04/19/24 04/19/24 History 62.5 mcg-vilant 25 mcg inhalat.powder (Trelegy Ellipta) Allergies Allergy/AdvReac Type Severity Reaction Status Date / Time No Known Allergies Allergy Verified 02/02/25 18:44 Exam Vital Signs Temp Pulse Resp BP Pulse Ox O2 Del Method 97.7 F 71 19 143/92 H 100 Room Air 02/02/25 23:45 02/02/25 23:45 02/02/25 23:45 02/02/25 23:45 02/02/25 23:45 02/02/25 23:45 Constitutional Constitutional: no acute distress Routine Respiratory Exam Respiratory: Present no resp distress Routine Abdominal Exam Abdominal: Present soft and hernia (umbilical hernia not reducible, no overlying skin change, significant tenderness, infraumbilical midline incision) Results Results: Laboratory Laboratory results: results reviewed Results: Imaging CT scan - abdomen: report reviewed and image reviewed Assessment & Plan Plan 59F with asthma, chronic pain on [place], history of right femur fracture presenting to ER with abdominal pain, nausea and vomiting, findings of incarcerated umbilical hernia containing small bowel. I explained benefits/risks of surgery including possible need for bowel resection, infection, bleeding, and hernia recurrence. All questions were answered and patient is agreeable to proceeding OR emergently for umbilical hernia repair, possible bowel resection, possible mesh
[2025-02-03] MEDS: SCOPOLAMINE 1 MG TDSY TOP (01:02)
--- NOTE | 2025-02-03 02:30 | PD.RESHP ---
Documentation for date of: 02/03/25 HPI History of Present Illness History of present illness: Ms. Collazo is a 59 year-old female patient with PMHx umbilical hernia, asthma, chronic pain, DVT who presented to the ED with LLQ pain x1 day. Sudden onset, associated with nausea and vomiting. She felt that her hernia was stuck and could not be reduced. Denies recent heavy lifting, pain with urination, constipation. Last PO intake around 11 AM 02/02. ED course: Afebrile, VSS. CBC, CMP,UA unremarkable. CT a/p showed 5.4 cm umbilical hernia defect containing incarcerated small bowel with dilated small bowel loops, early SBO. Dr. Anthony consulted, planned for immediate surgical repair. PMHx: umbilical hernia, asthma, chronic pain, migraines, DVT, R femur fracture Allergies: NKDA Home meds: ASA 81 mg PO daily, [place] PRN SgHx: tubal ligation, repair of femur, varicose veins FHx: none reported Review of Systems Review of Systems Narrative Review of Systems: 14 point ROS negative other than HPI Exam Vital Signs Temp Pulse Resp BP Pulse Ox O2 Del Method 97.7 F 71 19 143/92 H 100 Room Air 02/02/25 23:45 02/02/25 23:45 02/02/25 23:45 02/02/25 23:45 02/02/25 23:45 02/02/25 23:45 Narrative Exam General: No acute distress, well nourished Eye: PERRL, EOMI, normal conjunctiva, no scleral icterus HENT: Normocephalic, atraumatic, hearing intact to conversation at normal volume, moist oral mucosa Neck: Supple, non-tender, no JVD, no lymphadenopathy Lungs: Non-labored respirations, symmetric chest rise Heart: Peripheral pulses intact bilaterally Abdomen: soft, umbilical hernia not reducible, no overlying skin change, significant tenderness, infraumbilical midline incision, post-op surgical scar present Musculoskeletal: Normal range of motion and strength Skin: Skin is warm, dry, no rashes or lesions. Psychiatric: Cooperative, appropriate mood and affect Results: Labs 02/04/25 04:39 02/04/25 04:39 Labs: Short CBC 02/02/25 Range/Units 19:50 WBC 10.5 (3.6-11.0) Thou/mm3 Hgb 14.4 (12.0-16.0) g/dL Hct 43.3 (36.0-46.0) % Plt Count 278 (140-440) Thou/mm3 BMP 02/02/25 19:50 Sodium 143 Potassium 3.5 Chloride 106 Carbon Dioxide 27.2 BUN 20 Creatinine 0.9 Glucose 108 H Calcium 10.4 Liver Function 02/02/25 Range/Units 19:50 Total Bilirubin 0.4 (0.3-1.2) mg/dL AST 22 (0-34) U/L ALT 22 (10-49) U/L Alkaline Phosphatase 94 (46-116) U/L Albumin 5.4 H (3.5-5.0) gm/dL Urine 02/02/25 Range/Units 20:00 Urine Color Yellow (Lt Yel-Yel) Urine Clarity Clear (Clear/Hazy) Urine pH 6.5 (5.0-7.0) Ur Specific Poth 1.028 (1.001-1.035) Urine Protein Trace (Neg - Trace) Urine Glucose (UA) Negative (Negative) Quality Measures Quality Measures VTE prophylaxis Medications Home Medications and Allergies Home Medications ?Medication ?Instructions ?Recorded ?Confirmed ?Type zolpidem 10 mg tablet 10 mg PO HS PRN Insomnia 06/05/17 02/03/25 History buspirone 7.5 mg tablet 7.5 mg PO BID 04/19/24 02/03/25 History Held on 02/03/25. Instructions: Resume on 02/10/25. COntinue to hold until you see PCP celecoxib 200 mg capsule 200 mg PO QDAY 04/19/24 02/03/25 History Held on 02/03/25. Instructions: Resume on 02/10/25. COntinue to hold until you see PCP cetirizine 10 mg tablet 10 mg PO QDAY 04/19/24 02/03/25 History famotidine 40 mg tablet 40 mg PO HS 04/19/24 02/03/25 History aspirin 81 mg tablet,delayed 81 mg PO DAILY 02/03/25 02/03/25 History release tirzepatide (weight loss) 5 mg/0.5 5 mg subcut .once weekly 02/03/25 02/03/25 History mL subcutaneous pen injector (Zepbound) topiramate 25 mg tablet 25 mg PO Q12H 02/03/25 02/03/25 History Allergies Allergy/AdvReac Type Severity Reaction Status Date / Time No Known Allergies Allergy Verified 02/02/25 18:44 Visit Medications Acetaminophen (Acetaminophen 325 Mg Tablet) 650 mg PO Q6H PRN PRN Reason: Fever >100.3 Stop: 03/05/25 02:21 Acetaminophen (Acetaminophen 325 Mg Tablet) 650 mg PO Q6H PRN PRN Reason: PAIN SCALE 1-3 (mild Stop: 03/05/25 02:21 Fentanyl Citrate (Fentanyl Cit Inj 50 Mcg/Ml Amp 2ml) 50 mcg IVP Q5MIN PRN PRN Reason: PAIN SCALE 4-10(Mod-Sev Heparin Sodium (Porcine) (Heparin Sod Inj 5000 Unit/Ml Vial) 5,000 unit SC Q8HR [place] Stop: 02/17/25 05:59 Hydralazine HCl (Hydralazine Inj 20 Mg/Ml Vial) 5 mg IV Q20MIN PRN PRN Reason: SEE COMMENTS Hydromorphone HCl (Hydromorphone Inj 2 Mg/Ml Vial) 0.5 mg IVP Q10MIN PRN On Hold: 02/03/25 02:23 PRN Reason: PAIN SCALE 4-10(Mod-Sev Ketorolac Tromethamine (Ketorolac Inj 30 Mg/Ml Vial) 30 mg IVP X1 PRN PRN Reason: PAIN SCALE 4-10(Mod-Sev Stop: 02/08/25 02:17 Meperidine HCl (Meperidine Inj 50 Mg/Ml Vial) 12.5 mg IVP Q5M PRN PRN Reason: SHIVERING Stop: 02/08/25 02:16 Metoclopramide HCl (Metoclopramide Inj 5 Mg/Ml Vial 2 Ml) 10 mg IVP X1 PRN; Protocol PRN Reason: NAUSEA OR VOMITING Midazolam HCl (Midazolam Inj 1 Mg/Ml Vial 2 Ml) 1 mg IVP Q5MIN PRN PRN Reason: ANXIETY Stop: 02/04/25 02:16 Morphine Sulfate (Morphine Sulf Inj 4 Mg/Ml Vial) 2 mg IVP Q6HR PRN PRN Reason: pain 4-7 Stop: 02/08/25 02:26 Ondansetron HCl (Ondansetron Inj 2 Mg/Ml Inj 2 Ml) 4 mg IVP X1 PRN PRN Reason: NAUSEA OR VOMITING Ondansetron HCl (Ondansetron Inj 2 Mg/Ml Inj 2 Ml) 4 mg IVP Q6H PRN; Protocol PRN Reason: NAUSEA OR VOMITING Stop: 03/05/25 02:21 Discontinued Medications Hydromorphone HCl (Hydromorphone Inj 2 Mg/Ml Vial) 1 mg IVP X1 ONE Stop: 02/02/25 22:49 Last Admin: 02/02/25 23:24 Dose: 1 mg Hydromorphone HCl (Hydromorphone Inj 2 Mg/Ml Vial) 1 mg IVP X1 ONE Stop: 02/03/25 00:22 Last Admin: 02/03/25 00:31 Dose: 1 mg Morphine Sulfate (Morphine Sulf Inj 4 Mg/Ml Vial) 4 mg IVP NOW ONE Stop: 02/02/25 19:42 Last Admin: 02/02/25 21:14 Dose: Not Given Morphine Sulfate (Morphine Sulf Inj 4 Mg/Ml Vial) 4 mg IM X1 ONE Stop: 02/02/25 20:05 Last Admin: 02/02/25 21:53 Dose: 4 mg Ondansetron HCl (Ondansetron Odt 4 Mg Tabrap) 4 mg PO X1 ONE; Protocol Stop: 02/02/25 19:43 Last Admin: 02/02/25 21:53 Dose: 4 mg Ondansetron HCl (Ondansetron Inj 2 Mg/Ml Inj 2 Ml) 4 mg IVP X1 ONE; Protocol Stop: 02/02/25 22:50 Last Admin: 02/02/25 23:24 Dose: 4 mg Scopolamine (Scopolamine 1 Mg Tdsy) 1 mg TOP X1 ONE Stop: 02/03/25 01:00 Last Admin: 02/03/25 01:02 Dose: 1 mg Assessment & Plan Plan Ms. Collazo is a 59 year-old female patient with PMHx umbilical hernia, asthma, chronic pain, DVT who presented to the ED with LLQ pain radiating to the right side x1 day. Admitted for surgical repair of incarcerated umbilical hernia. #Incarcerated umbilical hernia #Intractable abdominal pain #Intractable nausea and vomiting LLQ pain x1 day, 10/10 pain, associated with nausea and vomiting CT a/p showed 5.4 cm umbilical hernia defect containing incarcerated small bowel with dilated small bowel loops, early SBO. Dr. Anthony consulted, planned for immediate surgical repair. Plan: - Consulted Dr. Anthony, surgical repair - NPO prior to surgery, then clears - Pain management - Tylenol PRN, morphine 2 mg IV q6h PRN - Zofran IV PRN #Hx DVT Plan: - ASA 81 mg PO daily (home med) - DVT ppx with heparin subQ Checklist Dispo: Admit to med surg Diet: NPO --> clears when appropriate Bowel Reg: n/a VTE ppx: heparin subQ GI ppx: n/a Pain mgmt: Tylenol PRN, morphine 2 mg IV q6h PRN Code status: full Plan discussed with Dr. Maxwell and Dr. Melida Hinton MD PGY1 Attending Provider Attestation/Addendum After examination of the patient and review of the clinical data I feel that this patient needs admission to the hospital for further treatment/evaluation. TOTAL CC TIME: 45 MIN TOTAL TIME: 45 Minutes of direct medical management and planning of care. I Elizabeth Montez MD, attest that I was physically present for young portions of evaluation, and examined patient, labs and imagings and plan of care were discussed with IM residents team, and I agree with the findings and plans documented above.
--- NOTE | 2025-02-03 02:54 | SUR.PHASEI ---
pt received to pacu bay 2. vss. breathing even and unlabored. dressing to abdomen cdi with abdominal binder in place over dressing, lazaro, adaptic, 4x4 gauze, and [place] tape. report from dr arzola and nurse laws.
--- NOTE | 2025-02-03 03:15 | ESOP_ITS ---
Date of Procedure 02/03/25 Pre Op Diagnosis Incarcerated umbilical hernia Post Op Diagnosis Same Procedure Reduction and repair of umbilical hernia with mesh Findings Two umbilica/ incisional hernia defects totaling 7x6cm when combined, viable small bowel Procedure Description After discussion of risks and benefits with an medical interpreter, patient was brought to the operating room, SCDs were placed and general anesthesia was induced. She received preoperative antibiotics and was prepped and draped in the usual sterile fashion. After timeout the existing midline incision which originated at the umbilicus was reopened using a #15 blade the tissues were gently dissected with electrocautery and then using blunt dissection. At the superior aspect of the incision a 2 cm defect was found which contained fat. This fat was freed and reduced back into the abdomen. Inferiorly there was an additional hernia defect with an incarcerated sac. The intervening fascia was divided with electrocautery to free up the sac and allow for visualization of the small bowel. The small bowel was all noted to be viable and was reduced back into the abdomen. The fascial edges were freed of all adhesions and portions of hernia sac were removed. The remaining portions of hernia sac were ligated with 0 silk ties. Once all edges of fascia were freed from adhesions, the defect was measured and noted to be 7 cm in longitudinal dimension and 6 cm transversely. Given this large size I opted to place a Ventrio mesh which was 8 x 12 cm. The mesh was secured in place with 2-0 Prolene sutures until there were no gaps. The wound was irrigated and there was no bleeding. Subcutaneous tissue was closed in 2 layers, with 2-0 Vicryl interrupted sutures followed by 3-0 Vicryls. The skin was then approximated with lazaro and covered with Adaptic, gauze and Tegaderm. Patient was extubated and brought to PACU in stable condition Pathology / specimen Other (Hernia sac) Estimated Blood Loss 25 Surgeon Alona Anthony MD Surgical Staff Operation Date: 02/03/25 00:45 Case Staff Anesthesiologist: Sergio Pond RNmechanical design engineer facilities: Lorena Castro
--- NOTE | 2025-02-03 03:40 | SUR.PHASEI ---
report called to nurse stapleton on ms. vss. breathing even and unlabored on room air. denies pain and nausea. dressing remains cdi with abdominal binder in place. transported to room via gurney.
[2025-02-03] MEDS: HEPARIN SOD INJ 5000 UNIT/ML VIAL SC ×3 (05:49→21:29)
[2025-02-03 06:00] LABS: Basophils # (Auto) 0.0 Thou/mm3 (0.0-0.2); Basophils % (Auto) 0 % (0-2.5); Eosinophils # (Auto) 0.0 Thou/mm3 (0.0-0.5); Eosinophils % (Auto) 0 % (0-10); Hematocrit 40.1 % (36.0-46.0); Hemoglobin 13.3 g/dL (12.0-16.0); Immature Granulocytes Auto 0.06 Thou/mm3 (0.00-0.00); Lymphocytes # (Auto) 0.8 Thou/mm3 (1.0-4.8); Lymphocytes % (Auto) 7 % (10-50); Mean Corpuscular HGB Conc 33.2 g/dl (31.0-37.0); Mean Corpuscular Hemoglobin 30.4 pg (25.0-35.0); Mean Corpuscular Volume 92 fL (80-100); Monocytes # (Auto) 0.2 Thou/mm3 (0.0-0.8); Monocytes % (Auto) 2 % (0-12); Neutrophils # (Auto) 10.8 Thou/mm3 (1.8-7.7); Neutrophils % (Auto) 90 % (37-80); Nucleated Red Blood Cell # 0.00 Thou/mm3 (0.00-0.00); Nucleated Red Blood Cell % 0 /100 WBC (0); Platelet Count 228 Thou/mm3 (140-440); RDW Standard Deviation 48.2 fL (36.4-46.3); Red Blood Count 4.38 Miln/mm3 (4.00-5.20); White Blood Count 11.9 Thou/mm3 (3.6-11.0)
[2025-02-03 06:36] LABS: Alanine Aminotransferase 16 U/L (10-49); Albumin, Serum 4.5 gm/dL (3.5-5.0); Albumin/Globulin Ratio 1.6 (1.2-2.2); Alkaline Phosphatase 84 U/L (46-116); Anion Gap 13 (7-16); Aspartate Amino Transferase 20 U/L (0-34); BUN/Creatinine Ratio 21 Ratio (12-20); Bilirubin,Total 0.4 mg/dL (0.3-1.2); Blood Urea Nitrogen 19 mg/dL (9-23); Calcium 9.3 mg/dL (8.3-10.6); Calcium (Corrected) 9.3 mg/dL (8.5-10.1); Carbon Dioxide 25.1 mMol/L (20.0-31.0); Chloride 107 mMol/L (98-107); Creatinine (Component) 0.9 mg/dL (0.6-1.3); Estimated Creatinine Clearance 89.9 mL/min (>60); Globulin 2.9 gm/dL (2.3-3.5); Glucose 154 mg/dL (74-106); Magnesium 2.0 mg/dL (1.6-2.6); Osmolality,Calculated 293 (275-295); Potassium 3.4 mMol/L (3.4-5.1); Sodium 145 mMol/L (136-145); Total Protein 7.4 gm/dL (5.7-8.2); eGFR > 60 See Note
[2025-02-03] MEDS: HYDROcodone/APAP 5/325 TABLET 1 TAB PO ×4 (07:59→21:27)
[2025-02-03] MEDS: ASPIRIN EC 81 MG TABEC PO (08:11)
--- NOTE | 2025-02-03 12:06 | ESPR_ITS ---
Documentation for date of: 02/03/25 Subjective Subjective Interval history: Patient is Venezuelan-speaking and interview facilitated by registered healthcare transaction advisory services manager. Patient was seen and examined at bedside this AM. No acute exents overnight. Patient tolerating clear liquid diet, adequate urine output and mentation is at baseline. Patient complains of pain at abdominal incision. Has not had a bowel movement yet but is passing flatus. Exam Vital Signs Temp Pulse Resp BP Pulse Ox O2 Del Method O2 Flow Rate 97.3 F 97 17 115/77 96 Nasal Cannula 1 02/03/25 08:00 02/03/25 08:00 02/03/25 08:00 02/03/25 08:00 02/03/25 08:00 02/03/25 08:00 02/03/25 08:00 Narrative Exam Constitutional Alert, oriented x 3 and comfortable HEENT Vision grossly intact. Patent nares. Trachea midline Respiratory Chest normal on inspection and clear auscultation bilaterally Cardiovascular S1 and S2 audible, RRR. No murmurs carotid bruit. No gross JVD. Abdominal Soft, obese and tender to palpation over abdominal incision site. Abdominal binder noted, clean and dry. Bowel sounds present Genitourinary No bladder tenderness, no flank pain. Normal to palpation Musculoskeletal Extremities tone within normal limits. No LE edema. Neurological CN II - XII grossly intact. Extremity motor and sensation grossly intact. Skin Warm, dry and intact. No apparent lesions. Psychiatric Patient has good affect, is cooperative Objective Labs 02/03/25 04:38 02/03/25 04:38 Labs: Laboratory Results - last 24 hr 02/02/25 02/02/25 02/03/25 19:50 20:00 04:38 WBC 10.5 11.9 H RBC 4.77 4.38 Hgb 14.4 13.3 Hct 43.3 40.1 MCV 91 92 MCH 30.2 30.4 MCHC 33.3 33.2 RDW Std Deviation 47.7 H 48.2 H Plt Count 278 228 D Neut % (Auto) 70 90 H Lymph % (Auto) 25 7 L [place] % (Auto) 4 2 Eos % (Auto) 1 0 Baso % (Auto) 0 0 Neut # (Auto) 7.3 10.8 H Lymph # (Auto) 2.6 0.8 L [place] # (Auto) 0.4 0.2 Eos # (Auto) 0.1 0.0 Baso # (Auto) 0.0 0.0 Immature Gran # (Auto) 0.06 H 0.06 H Absolute Nucleated RBC 0.00 0.00 Immature Gran % 1 H 1 H Nucleated RBC % 0 0 Sodium 143 145 Potassium 3.5 3.4 Chloride 106 107 Carbon Dioxide 27.2 25.1 Anion Gap 10 13 BUN 20 19 Creatinine 0.9 0.9 Estim Creat Clear Calc 88.1 89.9 eGFR > 60 > 60 BUN/Creatinine Ratio 22 H 21 H Glucose 108 H 154 H Calculated Osmolality 288 293 Calcium 10.4 9.3 Corrected Calcium 10.4 H 9.3 Magnesium 2.0 Total Bilirubin 0.4 0.4 AST 22 20 ALT 22 16 Alkaline Phosphatase 94 84 Total Protein 8.8 H 7.4 Albumin 5.4 H 4.5 D Globulin 3.4 2.9 Albumin/Globulin Ratio 1.6 1.6 Lipase 34 Ur Collection Type Voided Urine Color Yellow Urine Clarity Clear Urine pH 6.5 Ur Specific [place] 1.028 Urine Protein Trace Urine Glucose (UA) Negative Urine Ketones Negative Urine Blood Negative Urine Nitrite Negative Urine Bilirubin Negative Urine Urobilinogen (Auto) Negative Ur Leukocyte Esterase Negative Urine RBC 2 Urine WBC 2 Ur Squamous Epith Cells 4 Urine Bacteria None Ur Culture Indicated? Not Indicated Quality Measures Quality Measures none Assessment & Plan Assessment Current Active Medications: Generic Name Dose Route Start Last Admin Trade Name Freq PRN Reason Stop Dose Admin Acetaminophen 650 mg 02/03/25 08:39 Acetaminophen 325 Mg Tablet PO 03/05/25 02:21 Q6H PRN Fever >100.3 and Mild Pain 1-3 Hydrocodone Bitart/Acetaminophen 1 tab 02/03/25 03:36 02/03/25 07:59 Hydrocodone/Apap 5/325 Tablet PO 02/08/25 03:35 1 tab Q4H PRN Administration PAIN SCALE 4-10(Mod-Sev Aspirin 81 mg 02/03/25 09:00 02/03/25 08:11 Aspirin Ec 81 Mg Tabec PO 03/05/25 08:59 81 mg QDAY [place] Administration Heparin Sodium (Porcine) 5,000 unit 02/03/25 06:00 02/03/25 05:49 Heparin Sod Inj 5000 Unit/Ml Vial SC 02/17/25 05:59 5,000 unit Q8HR [place] Administration Hydralazine HCl 5 mg 02/03/25 02:17 Hydralazine Inj 20 Mg/Ml Vial IV Q20MIN PRN SEE COMMENTS Morphine Sulfate 2 mg 02/03/25 05:48 Morphine Sulf Inj 4 Mg/Ml Vial IVP 02/08/25 02:26 Q6HR PRN BREAKTHROUGH PAIN (SEVERE) Protocol Ondansetron HCl 4 mg 02/03/25 02:22 Ondansetron Inj 2 Mg/Ml Inj 2 Ml IVP 03/05/25 02:21 Q6H PRN NAUSEA OR VOMITING Protocol Plan Ms. Collazo is a 59 year-old female patient with PMHx umbilical hernia, asthma, chronic pain, DVT who presented to the ED with LLQ pain radiating to the right side x1 day. Admitted for surgical repair of incarcerated umbilical hernia. Day 1 postoperative incarcerated umbilical hernia repair Patient presented with abdominal pain and was found to have incarcerated umbilical hernia on CT scan. Today patient is passing flatus and tolerating solid diet. Has not had a bowel movement as of yet. Plan: ? Pain management with hydrocodone and morphine as needed ? Encourage ambulation and sitting out of chair to prevent postoperative ileus ? Incentive spirometer ordered History of asthma Patient on cetirizine daily at home. Plan: ? Resume home medication cetirizine 10 mg p.o. daily ? DuoNebs Q2 hourly as needed History of DVT 2019 Health maintenance: Disposition: Pain control and pending return of bowel function. Diet: Regular diet Lines: pIVs GI Prophylaxis: None Thrombo Prophylaxis: Heparin Code status: FULL CODE Attending Provider Attestation/Addendum I have seen and examined the patient. I was physically present for the young portions of the services provided including history, physical exam, diagnosis, treatment plans and orders. I agree with assessment and plan of care as documented by residents. Even though this this note was carefully revised there may still be minor errors in training systems officer due to voice recognition software. Mary Heredia MD
[2025-02-03] MEDS: FAMOTIDINE 20 MG TABLET PO ×2 (15:48→21:28)
[2025-02-03] MEDS: ZOLPIDEM 5 MG TABLET 10 MG PO (23:23)
[2025-02-04] VITALS: BP 112/65; PULSE 66; RESP 17; TEMP 36.2; O2SAT 95
[2025-02-04 04:00] VITALS: BP 111/60; PULSE 63; RESP 17; TEMP 36.2; O2SAT 95
[2025-02-04] MEDS: HYDROcodone/APAP 5/325 TABLET 1 TAB PO ×2 (04:26→09:32)
[2025-02-04] MEDS: HEPARIN SOD INJ 5000 UNIT/ML VIAL SC ×2 (05:44→13:53)
[2025-02-04 06:36] LABS: Basophils # (Auto) 0.0 Thou/mm3 (0.0-0.2); Basophils % (Auto) 0 % (0-2.5); Eosinophils # (Auto) 0.0 Thou/mm3 (0.0-0.5); Eosinophils % (Auto) 0 % (0-10); Hematocrit 36.3 % (36.0-46.0); Hemoglobin 11.7 g/dL (12.0-16.0); Immature Granulocytes Auto 0.01 Thou/mm3 (0.00-0.00); Lymphocytes # (Auto) 2.0 Thou/mm3 (1.0-4.8); Lymphocytes % (Auto) 27 % (10-50); Mean Corpuscular HGB Conc 32.2 g/dl (31.0-37.0); Mean Corpuscular Hemoglobin 29.8 pg (25.0-35.0); Mean Corpuscular Volume 93 fL (80-100); Monocytes # (Auto) 0.5 Thou/mm3 (0.0-0.8); Monocytes % (Auto) 7 % (0-12); Neutrophils # (Auto) 4.9 Thou/mm3 (1.8-7.7); Neutrophils % (Auto) 65 % (37-80); Nucleated Red Blood Cell # 0.00 Thou/mm3 (0.00-0.00); Nucleated Red Blood Cell % 0 /100 WBC (0); Platelet Count 233 Thou/mm3 (140-440); RDW Standard Deviation 49.0 fL (36.4-46.3); Red Blood Count 3.92 Miln/mm3 (4.00-5.20); White Blood Count 7.5 Thou/mm3 (3.6-11.0)
[2025-02-04 06:54] LABS: Alanine Aminotransferase 12 U/L (10-49); Albumin, Serum 3.9 gm/dL (3.5-5.0); Albumin/Globulin Ratio 1.6 (1.2-2.2); Alkaline Phosphatase 71 U/L (46-116); Anion Gap 9 (7-16); Aspartate Amino Transferase 13 U/L (0-34); BUN/Creatinine Ratio 23 Ratio (12-20); Bilirubin,Total 0.4 mg/dL (0.3-1.2); Blood Urea Nitrogen 18 mg/dL (9-23); Calcium 9.3 mg/dL (8.3-10.6); Calcium (Corrected) 9.4 mg/dL (8.5-10.1); Carbon Dioxide 26.3 mMol/L (20.0-31.0); Chloride 105 mMol/L (98-107); Creatinine (Component) 0.8 mg/dL (0.6-1.3); Estimated Creatinine Clearance 101.1 mL/min (>60); Globulin 2.5 gm/dL (2.3-3.5); Glucose 96 mg/dL (74-106); Magnesium 2.1 mg/dL (1.6-2.6); Osmolality,Calculated 281 (275-295); Phosphorous 3.8 mg/dL (2.4-5.1); Potassium 3.9 mMol/L (3.4-5.1); Sodium 140 mMol/L (136-145); Total Protein 6.4 gm/dL (5.7-8.2); eGFR > 60 See Note
[2025-02-04 08:00] VITALS: BP 117/67; PULSE 70; RESP 18; TEMP 36.2; O2SAT 95
[2025-02-04] MEDS: FAMOTIDINE 20 MG TABLET PO (09:28)
[2025-02-04] MEDS: Milk Of Magnesia Susp 30 ML UDC PO (09:28)
[2025-02-04] MEDS: ASPIRIN EC 81 MG TABEC PO (09:28)
[2025-02-04 09:37] VITALS: PULSE 74; RESP 16; RESP 97; O2SAT 97
--- NOTE | 2025-02-04 11:14 | PD.RESPRO ---
Documentation for date of: 02/04/25 Subjective Subjective Interval history: Patient is improved day 1 s/p hernia reduction and repair with mesh. She only complains of appropriate mild discomfort with sitting up and laying down or any activities that require use of the abdominal muscles. Her pain is being well managed with norco Q4, and does not have any other major complaints or concerns. Her appetite is good, does not report NVD or malaise, is passing flatus, but has not had a bowel movement since the procedure. She did state however that she is usually constipated at baseline Exam Vital Signs Temp Pulse Resp BP Pulse Ox O2 Del Method O2 Flow Rate 97.2 F 74 16 117/67 97 Nasal Cannula 1 02/04/25 08:00 02/04/25 09:37 02/04/25 09:37 02/04/25 08:00 02/04/25 09:37 02/04/25 08:00 02/04/25 08:00 Constitutional Constitutional: no acute distress Routine Respiratory Exam Respiratory: Present no resp distress Routine Abdominal Exam Abdominal: Present soft and surgical scars (c/d/i ); Absent distended, guarding or rigid Comments: ecchymosis inferior to the incision, no fluctuance or erythema Objective Labs 02/04/25 04:39 02/04/25 04:39 Labs: Laboratory Results - last 24 hr 02/04/25 04:39 WBC 7.5 RBC 3.92 L Hgb 11.7 L Hct 36.3 MCV 93 MCH 29.8 MCHC 32.2 RDW Std Deviation 49.0 H Plt Count 233 Neut % (Auto) 65 Lymph % (Auto) 27 [place] % (Auto) 7 Eos % (Auto) 0 Baso % (Auto) 0 Neut # (Auto) 4.9 Lymph # (Auto) 2.0 [place] # (Auto) 0.5 Eos # (Auto) 0.0 Baso # (Auto) 0.0 Immature Gran # (Auto) 0.01 H Absolute Nucleated RBC 0.00 Immature Gran % 0 Nucleated RBC % 0 Sodium 140 Potassium 3.9 D Chloride 105 Carbon Dioxide 26.3 Anion Gap 9 BUN 18 Creatinine 0.8 Estim Creat Clear Calc 101.1 eGFR > 60 BUN/Creatinine Ratio 23 H Glucose 96 D Calculated Osmolality 281 Calcium 9.3 Corrected Calcium 9.4 Phosphorus 3.8 Magnesium 2.1 Total Bilirubin 0.4 AST 13 ALT 12 Alkaline Phosphatase 71 Total Protein 6.4 Albumin 3.9 D Globulin 2.5 Albumin/Globulin Ratio 1.6 Quality Measures Quality Measures none Assessment & Plan Assessment Current Active Medications: Generic Name Dose Route Start Last Admin Trade Name Freq PRN Reason Stop Dose Admin Acetaminophen 650 mg 02/03/25 08:39 Acetaminophen 325 Mg Tablet PO 03/05/25 02:21 Q6H PRN Fever >100.3 and Mild Pain 1-3 Albuterol/Ipratropium 3 ml 02/03/25 16:03 Albuterol/Ipratropium (Duoneb) Rt Ana 3 Ml Nebu INH 03/05/25 16:02 Q2HR PRN SHORTNESS OF BREATH OR WHEEZE Aspirin 81 mg 02/03/25 09:00 02/04/25 09:28 Aspirin Ec 81 Mg Tabec PO 03/05/25 08:59 81 mg QDAY [place] Administration Famotidine 20 mg 02/03/25 15:45 02/04/25 09:28 Famotidine 20 Mg Tablet PO 03/05/25 15:44 20 mg BID [place] Administration Heparin Sodium (Porcine) 5,000 unit 02/03/25 06:00 02/04/25 05:44 Heparin Sod Inj 5000 Unit/Ml Vial SC 02/17/25 05:59 5,000 unit Q8HR [place] Administration Hydralazine HCl 5 mg 02/03/25 02:17 Hydralazine Inj 20 Mg/Ml Vial IV Q20MIN PRN SEE COMMENTS Loratadine 10 mg 02/03/25 16:15 02/04/25 09:28 Loratadine 10 Mg Tablet PO 03/05/25 16:14 10 mg QDAY [place] Administration Protocol Morphine Sulfate 2 mg 02/03/25 05:48 Morphine Sulf Inj 4 Mg/Ml Vial IVP 02/08/25 02:26 Q6HR PRN BREAKTHROUGH PAIN (SEVERE) Protocol Ondansetron HCl 4 mg 02/03/25 02:22 Ondansetron Inj 2 Mg/Ml Inj 2 Ml IVP 03/05/25 02:21 Q6H PRN NAUSEA OR VOMITING Protocol Sennosides 1 tab 02/03/25 16:15 02/04/25 09:28 Senna Tablet PO 03/05/25 16:14 1 tab QDAY [place] Administration Protocol Tramadol HCl 50 mg 02/04/25 10:28 Tramadol Hcl 50 Mg Tablet PO 02/09/25 10:27 Q6HR PRN PAIN SCALE 4-10(Mod-Sev Zolpidem Tartrate 10 mg 02/03/25 15:41 02/03/25 23:23 Zolpidem 5 Mg Tablet PO 03/05/25 15:40 10 mg HS PRN Administration INSOMNIA Additional Assessment: 59F s/p reduction and repair of incarcerated ventral hernia with mesh on 02/03. Since she is feeling well overall, incision site is c/d/i, no acute signs of infection, tolerating diet with no n/v, is passing flatus, and is constipated at baseline, I am comfortable with discharging her home and following up in 2 weeks to remove the lazaro. I advised pt to avoid strenuous activity including lifting objects >10lbs for 6 weeks and also provided return precautions. All questions were answered and pt is agreeable with this plan Plan Discharge home with norco prescription, educated on signs that require her to visit the ED including but not limited to NVD, fever, and excess bleeding from the surgical site.
[2025-02-04 12:00] VITALS: BP 121/76; PULSE 76; RESP 19; TEMP 36.1; O2SAT 97
--- NOTE | 2025-02-04 14:43 | PD.RESDS ---
Planned Discharge Date 02/04/25 DS: Providers Provider Date of admission: 02/03/25 02:22 Primary care physician: ANNELISE Cao Admitting Provider: Elizabeth Montez MD Attending Provider on Admission: Mary Heredia MD Attending Provider on DC: Mary Heredia MD Discharging Provider: Logan Palmer MD DS: Diagnosis Problem List Completed Was Problem List Reviewed/Reconciled?: Yes Hospital Course Hospital Course Hospital course: Ms. Collazo is a 59 year-old female patient with PMHx umbilical hernia, asthma, chronic pain, DVT who presented to the ED with LLQ pain radiating to the right side x1 day. Admitted for surgical repair of incarcerated umbilical hernia. ED course: Afebrile, VSS. CBC, CMP,UA unremarkable. CT a/p showed 5.4 cm umbilical hernia defect containing incarcerated small bowel with dilated small bowel loops, early SBO. Dr. Anthony consulted, planned for immediate surgical repair. Patient underwent umbilical hernia with mesh General Surgeon Dr. Anthony. She was treated with pain control of hydrocodone and ambulated postoperatively. She is passing flatus and tolerating p.o. diet. She has not had a bowel movement as yet, however she has chronic constipation and also on opioids. General surgeon, Dr. Plummer is comfortable with her being discharged to home and following up with her as outpatient. All patient's labs are now returning to her baseline. Patient clinically stable and fit for discharge home. Discharge diagnoses: 1. Day 2 postoperative incarcerated umbilical hernia repair 2. History of asthma 3. History of DVT 2019 Discharge plan: ? You have been started on pain medication for 2 more days. ? Continue the rest of your home medication as listed below ? Follow-up with general surgeon, Dr. Anthony within 2 weeks - Follow up with your primary care physician within 1 week of discharge. If you do not have a primary care physician, please follow up with the [facility] Residents clinic ([phone]) ? If you experience any new, worsening or persistent symptoms either call your primary doctor, or dial 911 or present to the emergency department. Plan of care discussed with Attending Dr. Giovanna Palmer MD PGY 2 Disclaimer: This note was dictated by speech recognition. Minor errors in charging plug placer may be present due to voice recognition software. Time Spent with Patient Time attestation: Total time spent providing and/or coordinating discharge services: 37 minutes Time spent: Greater than 30 minutes (37) Exam Vital Signs Temp Pulse Resp BP Pulse Ox O2 Del Method O2 Flow Rate 97.0 F 76 19 121/76 97 Nasal Cannula 1 02/04/25 12:00 02/04/25 12:00 02/04/25 12:00 02/04/25 12:00 02/04/25 12:00 02/04/25 12:00 02/04/25 12:00 Narrative Exam Constitutional Alert, oriented x 3 and comfortable HEENT Vision grossly intact. Patent nares. Trachea midline Respiratory Chest normal on inspection and clear auscultation bilaterally Cardiovascular S1 and S2 audible, RRR. No murmurs carotid bruit. No gross JVD. Abdominal Soft, obese and tender to palpation over abdominal incision site. Abdominal binder noted, clean and dry. Bowel sounds present Genitourinary No bladder tenderness, no flank pain. Normal to palpation Musculoskeletal Extremities tone within normal limits. No LE edema. Neurological CN II - XII grossly intact. Extremity motor and sensation grossly intact. Skin Warm, dry and intact. No apparent lesions. Psychiatric Patient has good affect, is cooperative Discharge Plan Plan Patient Disposition: HOME (Self Care) Patient condition on transfer: Stable Care Plan Goals: ? You have been started on pain medication for 2 more days. ? Continue the rest of your home medication as listed below ? Follow-up with general surgeon, Dr. Anthony within 2 weeks - Follow up with your primary care physician within 1 week of discharge. If you do not have a primary care physician, please follow up with the [facility] Residents clinic ([phone]) ? If you experience any new, worsening or persistent symptoms either call your primary doctor, or dial 911 or present to the emergency department. Prescriptions/Referrals Prescriptions/Med Rec: New hydrocodone-acetaminophen 5-325 mg tablet 1 tab PO BID MDD 2 PRN (Reason: pain) Qty: 4 0RF senna 8.6 mg capsule 8.6 mg PO QDAY 7 Days Qty: 7 0RF polyethylene glycol 3350 [Miralax] 17 gram/dose powder 4 g PO QDAY 7 Days Qty: 28 0RF Continued zolpidem 10 mg Tablet 10 mg PO HS PRN (Reason: Insomnia) famotidine 40 mg tablet 40 mg PO HS Patient Comments: TOME IRIS TABLETA AL ACOSTARSE cetirizine 10 mg Tablet 10 mg PO QDAY aspirin 81 mg tablet,delayed release (DR/EC) 81 mg PO DAILY Patient Comments: TOME IRIS TABLETA POR V A ORAL A DIARIO Zepbound 5 mg/0.5 mL pen injector 5 mg SUBCUT .once weekly Patient Comments: INJECT 5 MG SUBCUTANEOUSLY ONCE A WEEK topiramate 25 mg tablet 25 mg PO Q12H Patient Comments: PLEASE SEE ATTACHED FOR DETAILED DIRECTIONS Held celecoxib 200 mg Capsule 200 mg PO QDAY Hold Instructions: Resume on 02/10/25. COntinue to hold until you see PCP buspirone 7.5 mg Tablet 7.5 mg PO BID Hold Instructions: Resume on 02/10/25. COntinue to hold until you see PCP Discontinued hydrocodone-acetaminophen [[place]] 5-325 mg Tablet 1 tab PO Q6H PRN (Reason: Pain) Trelegy Ellipta 200-62.5-25 mcg blister with device 1 inh INHALATION QDAY Patient Comments: INHALE 1 PUFF POR V A ORAL ONCE A DAY Referrals: Alona Anthony MD [Physician, General Surgery] Referral Note: You will receive a message to confirm a follow-up appointment with me in 2 weeks Keisha Priest FNP [Primary Care Provider] Patient/Caregiver Discharge Instructions Other Discharge Activity Instructions:: Avoid lifting objects >10lbs for 6 weeks You may resume showering tomorrow 02/05 At that time it is ok to get incision wet, pat dry after Avoid bathing or swimming for 2 weeks If you develop worsening pain, nausea/vomiting, fever or concerns about your incision please seek care in ER For any non-urgent concern please call the office at [phone] (M-F 8-12pm, 1-4pm) Education Materials: Umbilical Hernia Repair After Ch, Having Hernia Surgery: Patch Repair Print Language: Lithuanian Stand Alone Forms: Sherry Award Info., Patient Portal Info Letter Discharge Order Discharge Orders: Discharge (Routine); Ordered 02/04/25 Ordered By: Logan Palmer Quality Discharge Quality Measures VTE prophylaxis Attestestation Attestation I have seen and examined the patient. I was physically present for the young portions of the services provided including history, physical exam, diagnosis, treatment plans and orders. I agree with assessment and plan of care as documented by residents. Even though this this note was carefully revised there may still be minor errors in charging plug placer due to voice recognition software. Mary Heredia MD
[2025-02-04 16:00] VITALS: BP 107/76; PULSE 74; RESP 18; TEMP 36.6; O2SAT 95
== END 2025-02-04 17:26 | disposition home or self-care (01) | DRG 355 ==
LOC: SERX 02-03 00:12 → SERHOLD 02-03 02:39 → S3NX 02-03 03:55
PROVIDERS: Physician Assistant; Surgery; Admitting Provider Student in an Organized Health Care Education/Training Program; Emergency Provider Emergency Medicine; PCP Registered Nurse Community Health; Visit Provider Student in an Organized Health Care Education/Training Program
DX: K42.0 Umbilical hernia with obstruction, without gangrene (principal); J45.909 Unspecified asthma, uncomplicated; K43.2 Incisional hernia without obstruction or gangrene; Z86.718 Personal history of other venous thrombosis and embolism; Z79.82 Long term (current) use of aspirin; G89.29 Other chronic pain; Z79.891 Long term (current) use of opiate analgesic; Z98.51 Tubal ligation status
CPT/HCPCS: 36415; 74176; 80053; 81001; 83690; 83735; 84100; 85025; 94664; 94762; 96372; 96374; 96375; 96376; 99284; A4649; C1781; J0131; J0694; J1100; J1171; J1644; J2270; J2371; J2405; J2704; J3010; J3490; Q0162; A9270

== ENCOUNTER 2025-02-14 13:32 | Outpatient (AMB) | payer MEDICARE, MEDICAID, SELFPAY ==
[2025-02-14 13:48] VITALS: BP 130/79; PULSE 73; RESP 18; TEMP 36.4; O2SAT 98; BMI 40.8
--- NOTE | 2025-02-14 13:48 | PD.GSCLVISIT ---
[facility] - [facility] 02/14/25 13:48 Height 1.68 m Height Method Stated Weight 115.269 kg Weight Measurement Method Standing Scale BMI 40.8 BP 130/79 Blood Pressure Source Automatic Cuff Blood Pressure Location Left Upper Arm Position Sitting Respiration 18 Pulse 73 Pulse Source Monitor Temp 97.6 F Temp Source Temporal Artery Scan Pulse Oximetry (%) 98 Oxygen Delivery Method Room Air Med/Allergies Allergies & Medications Allergies No Known Allergies Allergy (Verified 02/14/25 13:48) Medication Reconciliation zolpidem 10 mg tablet 10 mg PO HS PRN Insomnia 06/05/17 [History Confirmed 02/14/25] buspirone 7.5 mg tablet 7.5 mg PO BID 04/19/24 [History Confirmed 02/14/25] Held on 02/03/25. Instructions: Resume on 02/10/25. COntinue to hold until you see PCP celecoxib 200 mg capsule 200 mg PO QDAY 04/19/24 [History Confirmed 02/14/25] Held on 02/03/25. Instructions: Resume on 02/10/25. COntinue to hold until you see PCP cetirizine 10 mg tablet 10 mg PO QDAY 04/19/24 [History Confirmed 02/14/25] famotidine 40 mg tablet 40 mg PO HS 04/19/24 [History Confirmed 02/14/25] aspirin 81 mg tablet,delayed release 81 mg PO DAILY 02/03/25 [History Confirmed 02/14/25] hydrocodone 5 mg-acetaminophen 325 mg tablet 1 tab PO BID PRN pain #4 tabs 02/03/25 [Rx Confirmed 02/14/25] tirzepatide (weight loss) 5 mg/0.5 mL subcutaneous pen injector (Zepbound) 5 mg subcut .once weekly 02/03/25 [History Confirmed 02/14/25] topiramate 25 mg tablet 25 mg PO Q12H 02/03/25 [History Confirmed 02/14/25] amoxicillin 500 mg-potassium clavulanate 125 mg tablet 1 tab PO BID cellulitis #10 tabs 02/14/25 [Rx] oxycodone-acetaminophen 5 mg-325 mg tablet 1 tab PO Q6H PRN pain #20 tabs 02/14/25 [Rx] MA Intake Visit Data Collection New Patient or Established: Established Patient (seen at [facility] within 3 years) Seen by Clinical Staff ONLY (RN/MA): No Reason for Visit:: 2 WEEK POST OP INCISIONAL HERNIA Pain Present Currently: Yes Pain Location: Abdomen Pain scale:: 3 Complaint Manager Required: Yes PCP or OBGYN visit in last 3 months: Yes Hx Now: No Do You Feel Safe at Home: Yes Authorities Contacted: N/A Smoking Status Smoking Status: Never smoker Immunization / Flu Flu Vaccine in the Last 12 Months: Yes Flu Vaccine Exclusion Criteria: Already Received Past Medical History Past Medical History NEUROLOGIC: Positive Neurological Disorders and Migraine; Negative Seizures CARDIAC: Positive Varicose Veins; Negative Cardiac Disorders or Congestive Heart Failure RESPIRATORY: Positive Asthma and Bronchitis; Negative Chronic Obstructive Pulmonary Disease (COPD), Smoking or Smoking Exposure GASTROINTESTINAL: Positive Gastrointestinal Disorders (CONSTIPATION), Gastroesophageal Reflux Disease and Obesity GENITOURINARY: Negative Genitourinary Disorders or Renal Disease REPRODUCTIVE: Positive Previous Pregnancies; Negative Breast Cancer MUSCULOSKELETAL: Positive Arthritis (knees, spine), Carpal Tunnel Syndrome (RIGHT) and Degenerative Joint Disease (History of right knee DJD, history of surgeries x2 to the right knee) ENDOCRINE: Negative Endocrine Disorders, Diabetes Mellitus Type 1 or Diabetes Mellitus Type 2 HEMATOLOGIC: Positive Anemia; Negative Blood Disorders PSYCHO/SOCIAL: Positive Anxiety OTHER HISTORY: Positive Blood Transfusions, Blood Transfusion Reaction (UNKNOWN REACTION) and Chicken Pox; Negative Hospitalization, Falls, Anesthesia Reactions or Breast Cancer Family History FAMILY HISTORY: Positive Family Cardiac Disorders; Negative Family Psychiatric Problems, Family Respiratory Disorders, Family Gastrointestinal Problems, Family Cancer, Family Surgery or Family Anesthesia Reaction Surgical History SURGICAL: Positive Vascular Surgery (VARICOSE VEINS RIGHT), Joint Replacement (RIGHT KNEE), Open Reduction Internal Fixation (RIGHT KNEE) and Tubal Ligation; Negative Ear Surgery or Abdominal Surgery Social History SMOKING STATUS: Smoking status: Never smoker SECOND HAND EXPOSURE: second hand exposure: No ALCOHOL: Alcohol Intake: Never ALCOHOL FREQUENCY: Alcohol Intake Frequency: holidays/special occasions only HOUSING: Housing: trailer LIVES WITH: Lives With: Children and Significant Other HPI HPI Narrative HISTORY OF PRESENT ILLNESS IAlona, have obtained verbal consent from the patient, to be recorded during this encounter which may include, but not limited to, medical history, examination, treatment plans, and relevant health information.? Patient was informed that recording will be read and reviewed by myself before inclusion in the medical chart. The patient is a female who presents for a follow-up of urgent reduction and repair of incarcerated hernia with mesh She reports an improvement in her condition, with only occasional pain. Her appetite is normal, and she experiences no disturbances in bowel movements. However, she does experience nausea when she overeats, leading to a sensation of fullness and bloating. She is able to ambulate without difficulty but describes a sensation of her abdomen floating upon standing. She has been managing her pain with Tylenol as needed and is requesting a refill of norco (she was given 4 tablets, and only used them occasionally) She also reports a sensation of pressure during urination, as if something is about to fall out from her urethra. She noticed this concern after her knee replacement surgery but does feel like she has outright urinary incontinence now ROS Review of Systems Systems Reviewed: All systems reviewed, normal except as documented Objective/Exam General General Appearance: alert, cooperative and well groomed Resp Respiratory exam: Absent respiratory distress Abdominal Abdominal exam: Present soft and incision (umbilical incision with lazaro removed today, there is mild erythema surrounding the incision but no fluctuance, and appropriate tenderness but more pronounced at the superior aspect); Absent distention or tenderness Assessment & Plan Diagnosis / Problem List (1) Incarcerated umbilical hernia: Status: Acute Assessment & Plan: 59F s/p urgent reduction and repair of umbilical hernia with mesh 02/03, recovering well overall. Given the erythema and tenderness of the incision will prescribe a course of PO abx and follow up next week (2) Urinary bladder incontinence: Status: Acute Assessment & Plan: Reports difficulty reaching the restroom in time and uses diapers due to urgency. Feels pressure and tightness in the urethral area when urinating, which has worsened since recent surgery. Advised to consult primary care physician for a referral to a urologist to address these symptoms. Office Procedures GNS Level of Care Nursing/Assessment Patient Status: Established Patient Nursing Assessment/Reassesment: Medication Reconciliation, Update PMH in EMR and Vital Signs Coordination of Care: Complex Care and Chronic Disease 1-5, Consent,records obtained, informed consent, Education Simp Pt/Fam, Results/Orders obtained and Staff clarify orders Special Needs: Language special needs Established Patient Charge Established Patient Point Assignment: 90 Established Patient Point Charge: EP Level 3 (80-115) Patient Portal Questionaires Social History Living Situation History Housing: trailer Housing Other:: pt lives with boyfriend and 4 children Tobacco History Smoking Status: Never smoker Second Hand Smoke Exposure: No Alcohol History Alcohol Intake: Never Alcohol Intake Frequency: holidays/special occasions only Domestic Abuse History Do You Feel Safe at Home: Yes Review of Systems Report any current symptoms Only answer those that you have currently: Past Medical History Past Medical History Have you ever been diagnosed with any of the following: Neurological Problems Seizures: No Migraine: Yes Cardiology Problems Congestive Heart Failure: No Varicose Veins: Yes Respiratory Problems Chronic Obstructive Pulmonary Disease (COPD): No Asthma: Yes Bronchitis: Yes Smoking: No Smoking Exposure: No Stomache/Intestinal Problems Gastroesophageal Reflux Disease: Yes Obesity: Yes Genital/Urinary Problems Renal Disease: No Reproductive Problems Breast Cancer: No Previous Pregnancies: Yes Musculoskeletal Problems Arthritis: Yes (knees, spine) Carpal Tunnel Syndrome: Yes (RIGHT) Degenerative Joint Disease: Yes (History of right knee DJD, history of surgeries x2 to the right knee) Endocrine Problems Diabetes Mellitus Type 1: No Diabetes Mellitus Type 2: No Blood Problems Anemia: Yes Psychologic Problems Anxiety: Yes Other Problems Hospitalization: No Falls: No Blood Transfusions: Yes Blood Transfusion Reaction: Yes (UNKNOWN REACTION) Anesthesia Reactions: No Chicken Pox: Yes
== END 2025-02-14 14:30 | disposition home or self-care (01) ==
PROVIDERS: PCP Registered Nurse Community Health; Referring Provider Registered Nurse Community Health; Supervising Provider Surgery; Visit Provider Surgery
DX: K42.0 Umbilical hernia with obstruction, without gangrene (principal); R32 Unspecified urinary incontinence
CPT/HCPCS: 99213; G0463

== ENCOUNTER 2025-02-21 14:47 | Outpatient (AMB) | payer MEDICARE, MEDICAID, SELFPAY ==
--- NOTE | 2025-02-21 14:52 | PD.GSCLVISIT ---
[facility] Signs - [facility] 02/21/25 14:59 Height 1.68 m Height Method Stated Weight 117.651 kg Weight Measurement Method Standing Scale BMI 41.6 BP 133/84 H Blood Pressure Source Automatic Cuff Blood Pressure Location Left Upper Arm Position Sitting Respiration 18 Pulse 81 Pulse Source Monitor Temp 97.3 F Temp Source Temporal Artery Scan Pulse Oximetry (%) 94 L Oxygen Delivery Method Room Air Med/Allergies Allergies & Medications Allergies No Known Allergies Allergy (Verified 02/21/25 15:13) Medication Reconciliation zolpidem 10 mg tablet 10 mg PO HS PRN Insomnia 06/05/17 [History Confirmed 02/21/25] buspirone 7.5 mg tablet 7.5 mg PO BID 04/19/24 [History Confirmed 02/21/25] Held on 02/03/25. Instructions: Resume on 02/10/25. COntinue to hold until you see PCP celecoxib 200 mg capsule 200 mg PO QDAY 04/19/24 [History Confirmed 02/21/25] Held on 02/03/25. Instructions: Resume on 02/10/25. COntinue to hold until you see PCP cetirizine 10 mg tablet 10 mg PO QDAY 04/19/24 [History Confirmed 02/21/25] famotidine 40 mg tablet 40 mg PO HS 04/19/24 [History Confirmed 02/21/25] aspirin 81 mg tablet,delayed release 81 mg PO DAILY 02/03/25 [History Confirmed 02/21/25] hydrocodone 5 mg-acetaminophen 325 mg tablet 1 tab PO BID PRN pain #4 tabs 02/03/25 [Rx Confirmed 02/21/25] tirzepatide (weight loss) 5 mg/0.5 mL subcutaneous pen injector (Zepbound) 5 mg subcut .once weekly 02/03/25 [History Confirmed 02/21/25] topiramate 25 mg tablet 25 mg PO Q12H 02/03/25 [History Confirmed 02/21/25] amoxicillin 500 mg-potassium clavulanate 125 mg tablet 1 tab PO BID cellulitis #10 tabs 02/14/25 [Rx Confirmed 02/21/25] oxycodone-acetaminophen 5 mg-325 mg tablet 1 tab PO Q6H PRN pain #20 tabs 02/14/25 [Rx Confirmed 02/21/25] MA Intake Visit Data Collection New Patient or Established: Established Patient (seen at [facility] within 3 years) Seen by Clinical Staff ONLY (RN/MA): No Reason for Visit:: POST OP INCISIONAL HERNIA Pain Present Currently: Yes Pain Location: Abdomen Pain scale:: 3 Hospice Registered Nurse Required: Yes PCP or OBGYN visit in last 3 months: Yes Hx Now: No Do You Feel Safe at Home: Yes Authorities Contacted: N/A Smoking Status Smoking Status: Never smoker Immunization / Flu Flu Vaccine in the Last 12 Months: Yes Flu Vaccine Exclusion Criteria: Already Received Past Medical History Past Medical History NEUROLOGIC: Positive Neurological Disorders and Migraine; Negative Seizures CARDIAC: Positive Varicose Veins; Negative Cardiac Disorders or Congestive Heart Failure RESPIRATORY: Positive Asthma and Bronchitis; Negative Chronic Obstructive Pulmonary Disease (COPD), Smoking or Smoking Exposure GASTROINTESTINAL: Positive Gastrointestinal Disorders (CONSTIPATION), Gastroesophageal Reflux Disease and Obesity GENITOURINARY: Negative Genitourinary Disorders or Renal Disease REPRODUCTIVE: Positive Previous Pregnancies; Negative Breast Cancer MUSCULOSKELETAL: Positive Arthritis (knees, spine), Carpal Tunnel Syndrome (RIGHT) and Degenerative Joint Disease (History of right knee DJD, history of surgeries x2 to the right knee) ENDOCRINE: Negative Endocrine Disorders, Diabetes Mellitus Type 1 or Diabetes Mellitus Type 2 HEMATOLOGIC: Positive Anemia; Negative Blood Disorders PSYCHO/SOCIAL: Positive Anxiety OTHER HISTORY: Positive Blood Transfusions, Blood Transfusion Reaction (UNKNOWN REACTION) and Chicken Pox; Negative Hospitalization, Falls, Anesthesia Reactions or Breast Cancer Family History FAMILY HISTORY: Positive Family Cardiac Disorders; Negative Family Psychiatric Problems, Family Respiratory Disorders, Family Gastrointestinal Problems, Family Cancer, Family Surgery or Family Anesthesia Reaction Surgical History SURGICAL: Positive Vascular Surgery (VARICOSE VEINS RIGHT), Joint Replacement (RIGHT KNEE), Open Reduction Internal Fixation (RIGHT KNEE) and Tubal Ligation; Negative Ear Surgery or Abdominal Surgery Social History SMOKING STATUS: Smoking status: Never smoker SECOND HAND EXPOSURE: second hand exposure: No ALCOHOL: Alcohol Intake: Never ALCOHOL FREQUENCY: Alcohol Intake Frequency: holidays/special occasions only HOUSING: Housing: trailer LIVES WITH: Lives With: Children and Significant Other HPI HPI Narrative 59F HISTORY OF PRESENT ILLNESS I, Alona Anthony, have obtained verbal consent from the patient, to be recorded during this encounter which may include, but not limited to, medical history, examination, treatment plans, and relevant health information.? Patient was informed that recording will be read and reviewed by myself before inclusion in the medical chart. here for follow up of incarcerated umbilical hernia on 02/03/25. She is accompanied by an heavy equipment sales manager. She reports experiencing soreness in the area of her hernia repair, which she attributes to the surgical intervention. She has been managing her pain with Tylenol, having taken a dose this morning, and oxycodone, which she has not yet exhausted. She has completed her course of antibiotics. Her appetite remains good, and she believes she has gained some weight. She has been using pain medication sparingly, only when the pain becomes intolerable, and estimates that she has taken it approximately 4 times since her last visit. She has discontinued the use of the waist senior technical trainer provided by the clinic and has switched to a different one. She reports no drainage from the surgical site but notes that it appears red. She has been taking medication prescribed by her primary care physician, along with another medication prescribed by this clinic, which has improved her bowel regularity. She also adds MiraLAX to her water to aid in bowel movements. She adjusts her medication based on her bowel movements, taking it when she is constipated and pausing it when she has frequent bowel movements. She was previously on Zepbound for prediabetes but was advised to discontinue it post-surgery to avoid potential side effects such as diarrhea or constipation. She is considering resuming Zepbound. She was on Wegovy for 2 months before switching to Zepbound, which she took for 2 months prior to her surgery. She experienced nausea, constipation, and early satiety while on Zepbound. ROS Review of Systems Systems Reviewed: All systems reviewed, normal except as documented Objective/Exam General General Appearance: alert, cooperative and well groomed Resp Respiratory exam: Absent respiratory distress Abdominal Abdominal exam: Present soft and incision (c/d/i, no erythema, no fluctuance or tenderness); Absent distention or tenderness Assessment & Plan Diagnosis / Problem List (1) Incarcerated umbilical hernia: Status: Acute Assessment & Plan: 59F s/p repair of incarcerated umbilical hernia with mesh 02/03, recovering well overall Plan: Follow up in 4 weeks Pt advised to hold off on resuming zepbound as it caused her nausea and constipation, I encouraged her to increase water intake for now Pt aware she needs to avoid strenuous activity including lifting objects >10lbs for 6 weeks postop (2) Urinary bladder incontinence: Status: Acute Assessment & Plan: Follow up with PCP to receive urology referral Office Procedures GNS Level of Care Nursing/Assessment Patient Status: Established Patient Nursing Assessment/Reassesment: Medication Reconciliation, Update PMH in EMR and Vital Signs Coordination of Care: Complex Care and Chronic Disease 1-5, Consent,records obtained, informed consent, Education Simp Pt/Fam, Results/Orders obtained and Staff clarify orders Special Needs: Language special needs Established Patient Charge Established Patient Point Assignment: 90 Established Patient Point Charge: EP Level 3 (80-115) Patient Portal Questionaires Social History Living Situation History Housing: trailer Housing Other:: pt lives with boyfriend and 4 children Tobacco History Smoking Status: Never smoker Second Hand Smoke Exposure: No Alcohol History Alcohol Intake: Never Alcohol Intake Frequency: holidays/special occasions only Domestic Abuse History Do You Feel Safe at Home: Yes Review of Systems Report any current symptoms Only answer those that you have currently: Past Medical History Past Medical History Have you ever been diagnosed with any of the following: Neurological Problems Seizures: No Migraine: Yes Cardiology Problems Congestive Heart Failure: No Varicose Veins: Yes Respiratory Problems Chronic Obstructive Pulmonary Disease (COPD): No Asthma: Yes Bronchitis: Yes Smoking: No Smoking Exposure: No Stomache/Intestinal Problems Gastroesophageal Reflux Disease: Yes Obesity: Yes Genital/Urinary Problems Renal Disease: No Reproductive Problems Breast Cancer: No Previous Pregnancies: Yes Musculoskeletal Problems Arthritis: Yes (knees, spine) Carpal Tunnel Syndrome: Yes (RIGHT) Degenerative Joint Disease: Yes (History of right knee DJD, history of surgeries x2 to the right knee) Endocrine Problems Diabetes Mellitus Type 1: No Diabetes Mellitus Type 2: No Blood Problems Anemia: Yes Psychologic Problems Anxiety: Yes Other Problems Hospitalization: No Falls: No Blood Transfusions: Yes Blood Transfusion Reaction: Yes (UNKNOWN REACTION) Anesthesia Reactions: No Chicken Pox: Yes
[2025-02-21 14:59] VITALS: BP 133/84; PULSE 81; RESP 18; TEMP 36.3; O2SAT 94; BMI 41.6
== END 2025-02-21 15:29 | disposition home or self-care (01) ==
PROVIDERS: PCP Registered Nurse Community Health; Referring Provider Registered Nurse Community Health; Supervising Provider Surgery; Visit Provider Surgery
DX: Z48.815 Encounter for surgical aftercare following surgery on the digestive system (principal); R32 Unspecified urinary incontinence; E66.9 Obesity, unspecified; Z68.41 Body mass index [BMI] 40.0-44.9, adult
CPT/HCPCS: 99213; G0463

== ENCOUNTER 2025-03-18 21:44 | Emergency (ER) | payer MEDICARE, MEDICAID, SELFPAY ==
[2025-03-18 21:45] VITALS: BMI 40.3
[2025-03-18 22:26] VITALS: BP 137/83; PULSE 73; RESP 18; TEMP 37.2; O2SAT 97
--- NOTE | 2025-03-19 01:53 | PD.EDSKIN ---
ED Skin Abcess FB-RME/HPI General Chief complaint: Skin/Abscess/Foreign Body Stated complaint: BLEEDING FROM RIGHT LEG Time Seen by Provider: 03/18/25 23:29 Arrival date/time: 03/18/25 21:44 59F with history of anxiety and asthma presents to ED with R foot varicose vein bleeding after he socks snagged on it. Patient has specialist appt on Fri. Limitations: no limitations Related Data Home Medications ?Medication ?Instructions ?Recorded ?Confirmed zolpidem 10 mg tablet 10 mg PO HS PRN Insomnia 06/05/17 02/21/25 buspirone 7.5 mg tablet 7.5 mg PO BID 04/19/24 02/21/25 Held on 02/03/25. Instructions: Resume on 02/10/25. COntinue to hold until you see PCP celecoxib 200 mg capsule 200 mg PO QDAY 04/19/24 02/21/25 Held on 02/03/25. Instructions: Resume on 02/10/25. COntinue to hold until you see PCP cetirizine 10 mg tablet 10 mg PO QDAY 04/19/24 02/21/25 famotidine 40 mg tablet 40 mg PO HS 04/19/24 02/21/25 aspirin 81 mg tablet,delayed 81 mg PO DAILY 02/03/25 02/21/25 release tirzepatide (weight loss) 5 mg/0.5 5 mg subcut .once weekly 02/03/25 02/21/25 mL subcutaneous pen injector (Zepbound) topiramate 25 mg tablet 25 mg PO Q12H 02/03/25 02/21/25 Previous Rx's ?Medication ?Instructions ?Recorded hydrocodone 5 mg-acetaminophen 325 1 tab PO BID PRN pain #4 tabs 02/03/25 mg tablet amoxicillin 500 mg-potassium 1 tab PO BID cellulitis #10 tabs 02/14/25 clavulanate 125 mg tablet oxycodone-acetaminophen 5 mg-325 1 tab PO Q6H PRN pain #20 tabs 03/10/25 mg tablet Allergies Allergy/AdvReac Type Severity Reaction Status Date / Time No Known Allergies Allergy Verified 03/18/25 21:45 Review of Systems Review of Systems Systems Reviewed: All systems reviewed, normal except as documented Integumentary/Breasts Skin/Breast: Reports as per HPI and Reports other (bleeding) Past Medical History Past Medical History NEUROLOGIC: Positive Neurological Disorders and Migraine; Negative Seizures CARDIAC: Positive Varicose Veins; Negative Cardiac Disorders or Congestive Heart Failure RESPIRATORY: Positive Asthma and Bronchitis; Negative Chronic Obstructive Pulmonary Disease (COPD), Smoking or Smoking Exposure GASTROINTESTINAL: Positive Gastrointestinal Disorders (CONSTIPATION), Gastroesophageal Reflux Disease and Obesity GENITOURINARY: Negative Genitourinary Disorders or Renal Disease REPRODUCTIVE: Positive Previous Pregnancies; Negative Breast Cancer MUSCULOSKELETAL: Positive Musculoskeletal Disorders, Arthritis (knees, spine), Carpal Tunnel Syndrome (RIGHT) and Degenerative Joint Disease (History of right knee DJD, history of surgeries x2 to the right knee) ENDOCRINE: Negative Endocrine Disorders, Diabetes Mellitus Type 1 or Diabetes Mellitus Type 2 HEMATOLOGIC: Positive Anemia; Negative Blood Disorders PSYCHO/SOCIAL: Positive Anxiety OTHER HISTORY: Positive Blood Transfusions, Blood Transfusion Reaction (UNKNOWN REACTION) and Chicken Pox; Negative Hospitalization, Autoimmune Disease, Falls, Anesthesia Reactions or Breast Cancer Family History FAMILY HISTORY: Positive Family Cardiac Disorders; Negative Family Psychiatric Problems, Family Respiratory Disorders, Family Gastrointestinal Problems, Family Cancer, Family Surgery or Family Anesthesia Reaction Surgical History SURGICAL: Positive Vascular Surgery (VARICOSE VEINS RIGHT), Joint Replacement (RIGHT KNEE), Open Reduction Internal Fixation (RIGHT KNEE) and Tubal Ligation; Negative Ear Surgery or Abdominal Surgery Social History SMOKING STATUS: Never smoker SECOND HAND EXPOSURE: No SUBSTANCE USE: does not use ED Exam General Limitations: Present no limitations General appearance: Present alert and in no apparent distress Head Head exam: Present atraumatic Neck Neck exam: Present normal inspection, full ROM and trachea midline Chest Chest inspection: Present normal inspection and symmetric chest wall rise Extremities Exam Extremities exam: Present full ROM Expanded Lower Extremity Exam Foot/toe exam: Present full ROM and other (KHADRA around R foot) Neurological Exam Neurological exam: Present alert and oriented X3 Psychiatric Psychiatric exam: Present normal affect and normal mood Skin Skin exam: Present warm, dry, intact and normal color Course Quality Measures none Orders Category Date Time Status Wound Care NOW Care 03/18/25 23:32 Completed khadra wrap [Splint / Immobilizer] STAT Care 03/18/25 23:32 Completed Vital Signs Vital signs: Vital Signs Temperature 98.9 F 03/18/25 22:26 Pulse Rate 73 03/18/25 22:26 Respiratory Rate 18 03/18/25 22:26 Blood Pressure 137/83 H 03/18/25 22:26 Pulse Oximetry (%) 97 03/18/25 22:26 Oxygen Delivery Method Room Air 03/18/25 22:26 O2 at 97% on RA and WNLs Skin / Abscess / Foreign Body MDM Narrative MDM Narrative:: 59F with history of anxiety and asthma presents to ED with R foot varicose vein bleeding after he socks snagged on it. Patient has specialist appt on Fri. Physical exam reveals KHADRA wrap around R foot. After it was removed, bleeding was seen to have stopped. Patient is afebrile, calm, and alert. Wound area cleaned of dried blood and new gauze and KHADRA was applied. Patient data External records reviewed:: [facility] previous records Clinical information provided by:: patient Social determinants that could affect healthcare access:: mental health Patient has the following chronic illnesses:: psych and asthma How is presenting disease/condition affected by chronic disease/condition?: exacerbated by Evaluation data The following diagnostics were reviewed and interpreted by me:: other (specify) (none) Lab and/or radiology exams considered but not ordered:: not ordered Interpretation Summary: n/a Medications / Prescriptions Medications or Prescriptions considered but not ordered:: not ordered Medication administrations:: n/a Consultations Consultation(s) initiated? (list below): No Diagnosis Skin/Abscess Differential Diagnosis: abscess of skin or subcutaneous tissue, viral exanthem, dermatophytosis, urticaria, herpes zoster, allergic reaction to drug, cellulitis, eczema, insect bites, impetigo, contact dermatitis and other (varicose vein) Most likely diagnosis given after review of the tests above:: varicose vein Admission Indicated Admission indicated?: not indicated Admission Request Was there a request for admission?: No Disposition Plan Disposition Plan: Discharge Discharge Attestation Discharge Attestation: The patient and all family members were given an opportunity to ask questions and understood the discharge instructions. Discharge instructions specifically effects, indications for sooner follow up or return to the emergency department, and the expected course of current diagnosis. Patient condition: Stable Discharge Plan Plan Patient Disposition: HOME (Self Care) Discharge Disposition comment: Stable Prescriptions/Referrals Prescriptions/Med Rec: No Action amoxicillin-pot clavulanate 500-125 mg tablet 1 tab PO BID Qty: 10 0RF Rx Instructions: Take 1 tablet every 12 hours until completed oxycodone-acetaminophen 5-325 mg tablet 1 tab PO Q6H MDD 4 tabs PRN (Reason: pain) Qty: 20 0RF zolpidem 10 mg Tablet 10 mg PO HS PRN (Reason: Insomnia) famotidine 40 mg tablet 40 mg PO HS Patient Comments: RILEY SIMMONS TABLETA AL ACOSTARSE celecoxib 200 mg Capsule 200 mg PO QDAY cetirizine 10 mg Tablet 10 mg PO QDAY buspirone 7.5 mg Tablet 7.5 mg PO BID aspirin 81 mg tablet,delayed release (DR/EC) 81 mg PO DAILY Patient Comments: RILEY SIMMONS TABLETA POR V A ORAL A DIARIO Zepbound 5 mg/0.5 mL pen injector 5 mg SUBCUT .once weekly Patient Comments: INJECT 5 MG SUBCUTANEOUSLY ONCE A WEEK topiramate 25 mg tablet 25 mg PO Q12H Patient Comments: PLEASE SEE ATTACHED FOR DETAILED DIRECTIONS hydrocodone-acetaminophen 5-325 mg tablet 1 tab PO BID MDD 2 PRN (Reason: pain) Qty: 4 0RF Problem List Clinical Impression: Varicose vein of leg Patient/Caregiver Discharge Instructions Education Materials: ED Varicose Veins Additional Instructions: Please follow-up with PCP within 24-48 hours and return immediately if symptoms worsen. Make sure to follow-up with specialist on Fri. Print Language: [place] Helen[place] Stand Alone Forms: Patient Portal Info Letter JOSEP/ANNELISE Supervising Physician JOSEP/ANNELISE Supervising Physician: Dr. Barrera
== END 2025-03-19 00:07 | disposition home or self-care (01) ==
LOC: SERX 23:45
PROVIDERS: Emergency Provider Emergency Medicine; PCP Physician Assistant
DX: I83.891 Varicose veins of right lower extremity with other complications (principal)
CPT/HCPCS: 99281

== ENCOUNTER 2025-03-21 13:20 | Outpatient (AMB) | payer MEDICARE, MEDICAID, SELFPAY ==
[2025-03-21 13:30] VITALS: BP 134/77; PULSE 101; RESP 18; TEMP 36.3; O2SAT 95; BMI 41.3
--- NOTE | 2025-03-21 13:30 | PD.GSCLVISIT ---
Vital Signs - [facility] 03/21/25 13:30 Height 1.68 m Height Method Measured Weight 116.687 kg Weight Measurement Method Standing Scale BMI 41.3 BP 134/77 H Blood Pressure Source Automatic Cuff Blood Pressure Location Left Upper Arm Position Sitting Respiration 18 Pulse 101 H Pulse Source Monitor Temp 97.4 F Temp Source Temporal Artery Scan Pulse Oximetry (%) 95 Oxygen Delivery Method Room Air Med/Allergies Allergies & Medications Allergies No Known Allergies Allergy (Verified 03/21/25 13:31) Medication Reconciliation zolpidem 10 mg tablet 10 mg PO HS PRN Insomnia 06/05/17 [History Confirmed 03/21/25] buspirone 7.5 mg tablet 7.5 mg PO BID 04/19/24 [History Confirmed 03/21/25] Held on 02/03/25. Instructions: Resume on 02/10/25. COntinue to hold until you see PCP celecoxib 200 mg capsule 200 mg PO QDAY 04/19/24 [History Confirmed 03/21/25] Held on 02/03/25. Instructions: Resume on 02/10/25. COntinue to hold until you see PCP cetirizine 10 mg tablet 10 mg PO QDAY 04/19/24 [History Confirmed 03/21/25] famotidine 40 mg tablet 40 mg PO HS 04/19/24 [History Confirmed 03/21/25] aspirin 81 mg tablet,delayed release 81 mg PO DAILY 02/03/25 [History Confirmed 03/21/25] hydrocodone 5 mg-acetaminophen 325 mg tablet 1 tab PO BID PRN pain #4 tabs 02/03/25 [Rx Confirmed 03/21/25] tirzepatide (weight loss) 5 mg/0.5 mL subcutaneous pen injector (Zepbound) 5 mg subcut .once weekly 02/03/25 [History Confirmed 03/21/25] topiramate 25 mg tablet 25 mg PO Q12H 02/03/25 [History Confirmed 03/21/25] amoxicillin 500 mg-potassium clavulanate 125 mg tablet 1 tab PO BID cellulitis #10 tabs 02/14/25 [Rx Confirmed 03/21/25] oxycodone-acetaminophen 5 mg-325 mg tablet 1 tab PO Q6H PRN pain #20 tabs 03/21/25 [Rx] MA Intake Visit Data Collection New Patient or Established: Established Patient (seen at [facility] within 3 years) Seen by Clinical Staff ONLY (RN/MA): No Reason for Visit:: 4 WEEK F/U HERNIA Pain Present Currently: No Pain Scale Used: Dominique-Kelly/Numerical Mincing Machine Operator Required: Yes PCP or OBGYN visit in last 3 months: Yes Hx Now: No Do You Feel Safe at Home: Yes Authorities Contacted: N/A Smoking Status Smoking Status: Never smoker Immunization / Flu Flu Vaccine in the Last 12 Months: Yes Flu Vaccine Exclusion Criteria: Already Received Past Medical History Past Medical History NEUROLOGIC: Positive Neurological Disorders and Migraine; Negative Seizures CARDIAC: Positive Varicose Veins; Negative Cardiac Disorders or Congestive Heart Failure RESPIRATORY: Positive Asthma and Bronchitis; Negative Chronic Obstructive Pulmonary Disease (COPD), Smoking or Smoking Exposure GASTROINTESTINAL: Positive Gastrointestinal Disorders (CONSTIPATION), Gastroesophageal Reflux Disease and Obesity GENITOURINARY: Negative Genitourinary Disorders or Renal Disease REPRODUCTIVE: Positive Previous Pregnancies; Negative Breast Cancer MUSCULOSKELETAL: Positive Arthritis (knees, spine), Carpal Tunnel Syndrome (RIGHT) and Degenerative Joint Disease (History of right knee DJD, history of surgeries x2 to the right knee) ENDOCRINE: Negative Endocrine Disorders, Diabetes Mellitus Type 1 or Diabetes Mellitus Type 2 HEMATOLOGIC: Positive Anemia; Negative Blood Disorders PSYCHO/SOCIAL: Positive Anxiety OTHER HISTORY: Positive Blood Transfusions, Blood Transfusion Reaction (UNKNOWN REACTION) and Chicken Pox; Negative Hospitalization, Falls, Anesthesia Reactions or Breast Cancer Family History FAMILY HISTORY: Positive Family Cardiac Disorders; Negative Family Psychiatric Problems, Family Respiratory Disorders, Family Gastrointestinal Problems, Family Cancer, Family Surgery or Family Anesthesia Reaction Surgical History SURGICAL: Positive Vascular Surgery (VARICOSE VEINS RIGHT), Joint Replacement (RIGHT KNEE), Open Reduction Internal Fixation (RIGHT KNEE) and Tubal Ligation; Negative Ear Surgery or Abdominal Surgery Social History SMOKING STATUS: Smoking status: Never smoker SECOND HAND EXPOSURE: second hand exposure: No ALCOHOL: Alcohol Intake: Never ALCOHOL FREQUENCY: Alcohol Intake Frequency: holidays/special occasions only HOUSING: Housing: trailer LIVES WITH: Lives With: Children and Significant Other HPI HPI Narrative 59F s/p urgent umbilical hernia repair 02/03 here for planned follow-up. Patient states she feels well overall, her main complaint is pain in the left lower quadrant. She is taking Tylenol, ibuprofen and occasionally Percocet which all helped somewhat. She denies any nausea or fever, is somewhat constipated ROS Review of Systems Systems Reviewed: All systems reviewed, normal except as documented Objective/Exam General General Appearance: alert, cooperative and well groomed Resp Respiratory exam: Absent respiratory distress Abdominal Abdominal exam: Present soft, tenderness (Mild tenderness left lower quadrant) and incision (Umbilical incision C/D/I with no erythema); Absent distention Assessment & Plan Diagnosis / Problem List (1) S/P umbilical hernia repair, follow-up exam: Status: Acute Assessment & Plan: 59F s/p umbilical hernia repair with mesh on 02/03, recovering well overall. The cause of her left lower quadrant pain is unclear but will evaluate with CT scan Orders: Orders CT abdomen pelvis w con 1 Week Office Procedures GNS Level of Care Nursing/Assessment Patient Status: Established Patient Nursing Assessment/Reassesment: Medication Reconciliation, Update PMH in EMR and Vital Signs Coordination of Care: Complex Care and Chronic Disease 1-5, Education Complex Pt/Fam, Consent,records obtained, informed consent, Results/Orders obtained and Staff clarify orders Special Needs: Language special needs Established Patient Charge Established Patient Point Assignment: 95 Established Patient Point Charge: EP Level 3 (80-115) Patient Portal Questionaires Social History Living Situation History Housing: trailer Housing Other:: pt lives with boyfriend and 4 children Tobacco History Smoking Status: Never smoker Second Hand Smoke Exposure: No Alcohol History Alcohol Intake: Never Alcohol Intake Frequency: holidays/special occasions only Domestic Abuse History Do You Feel Safe at Home: Yes Review of Systems Report any current symptoms Only answer those that you have currently: Past Medical History Past Medical History Have you ever been diagnosed with any of the following: Neurological Problems Seizures: No Migraine: Yes Cardiology Problems Congestive Heart Failure: No Varicose Veins: Yes Respiratory Problems Chronic Obstructive Pulmonary Disease (COPD): No Asthma: Yes Bronchitis: Yes Smoking: No Smoking Exposure: No Stomache/Intestinal Problems Gastroesophageal Reflux Disease: Yes Obesity: Yes Genital/Urinary Problems Renal Disease: No Reproductive Problems Breast Cancer: No Previous Pregnancies: Yes Musculoskeletal Problems Arthritis: Yes (knees, spine) Carpal Tunnel Syndrome: Yes (RIGHT) Degenerative Joint Disease: Yes (History of right knee DJD, history of surgeries x2 to the right knee) Endocrine Problems Diabetes Mellitus Type 1: No Diabetes Mellitus Type 2: No Blood Problems Anemia: Yes Psychologic Problems Anxiety: Yes Other Problems Hospitalization: No Falls: No Blood Transfusions: Yes Blood Transfusion Reaction: Yes (UNKNOWN REACTION) Anesthesia Reactions: No Chicken Pox: Yes
== END 2025-03-21 13:54 | disposition home or self-care (01) ==
LOC: HODSRG 13:20
PROVIDERS: PCP Registered Nurse Community Health; Referring Provider Registered Nurse Community Health; Supervising Provider Surgery; Visit Provider Surgery
DX: K42.9 Umbilical hernia without obstruction or gangrene (principal); Z09 Encounter for follow-up examination after completed treatment for conditions other than malignant neoplasm
CPT/HCPCS: 99213; G0463